=== PATIENT | male | born 1950 | race Two or more races ===

== ENCOUNTER 2017-02-13 06:44 | Emergency (ER) | payer OTHER ==
[~2017-02-13] VITALS: Ht 167.6 cm; Wt 113.4 kg
[~2017-02-13 06:44] MED LIST: ASPI81CH43; CLOP75TA28
[2017-02-13] MEDS ORDERED: cloNIDine HCL 0.1 MG TAB PO ONE (08:15)
[2017-02-13 09:25] LABS: Basophils # (auto) 0.1 uL; Basophils % (auto) 0.8 % (0.0-2.0); CONDITION Y; Eosinophils # (auto) 0.1 uL; Eosinophils % (auto) 0.9 % (0.0-7.0); Hemoglobin 14.9 g/dL (13.5-17.5); Lymphocytes # (auto) 2.4 uL; Lymphocytes % (auto) 33.9 % (10.0-50.0); Mean Corpuscular Hemoglobin 29.9 pg (28.0-32.0); Mean Corpuscular Hgb Conc. 33.9 g/dL (32.0-36.0); Mean Corpuscular Volume 88.3 fL (80.0-100.0); Mean Platelet Volume 9.1 fL (7.4-10.4); Monocytes # (auto) 0.6 uL; Monocytes % (auto) 8.7 % (0.0-12.0); Neutrophils % (auto) 55.7 % (37.0-80.0); Platelet Count (auto) 237 10^3/uL (140-450); Red Cell Distribution Width 13.8 % (11.6-16.0); White Blood Cell 7.2 10^3/uL (4.4-10.8)
[2017-02-13 10:01] LABS: Albumin 3.7 g/dL (3.4-5.0); Alkaline Phosphatase 82 U/L (45-117); Anion Gap 6 (5-15); Aspartate Aminotransferase 28 U/L (15-37); Bilirubin, Total 1.4 mg/dL (0.2-1.0); Blood Urea Nitrogen 8 mg/dL (7-18); Calcium 8.5 mg/dL (8.5-10.1); Carbon Dioxide 27 mmol/L (21-32); Chloride 103 mmol/L (98-107); GFR African American 110 mL/min; GFR Non-African American 91 mL/min; Glucose 103 mg/dL (74-106); Magnesium 2.7 mg/dL (1.6-2.6); Sodium 136 mmol/L (136-145); Total Protein 7.1 g/dL (6.4-8.2)
[2017-02-13 11:28] VITALS: BP 130/75
== END 2017-02-13 11:33 | disposition home or self-care (01) ==
LOC: ER 06:44
DX: K80.20 Calculus of gallbladder without cholecystitis without obstruction (principal); I25.10 Atherosclerotic heart disease of native coronary artery without angina pectoris; I10 Essential (primary) hypertension; I25.2 Old myocardial infarction; Z98.61 Coronary angioplasty status; Z87.891 Personal history of nicotine dependence
CPT/HCPCS: 36415; 74176; 80053; 83735; 84484; 85025; 93005

== ENCOUNTER 2019-11-30 10:00 | Inpatient (IN) | payer OTHER ==
[~2019-11-30] VITALS: Ht 167.6 cm; Wt 106.0 kg
[2019-11-30] VITALS (41 sets, daily range): BP systolic 76–142; BP diastolic 37–86
[~2019-11-30 10:00] MED LIST changes: -CLOP75TA28; +CLOP75TA28 PO
[2019-11-30] MEDS ORDERED: DOPamine 1600MCG/ML D5W 250 ML IV ONE (10:06)
[2019-11-30] MEDS ORDERED: SODIUM CHLORIDE 0.9% 1,000 ML IV ONE ×4 (10:09→18:00)
[2019-11-30] MEDS ORDERED: ONDANSETRON HCL 4 MG/2 ML VIAL IV ONE (10:15)
[2019-11-30] MEDS ORDERED: ASCORBIC ACID 500 MG TAB PO ONE (10:15)
[2019-11-30] MEDS ORDERED: ZINC SULFATE 220mg CAP or TAB PO ONE (10:15)
[2019-11-30] MEDS: DOPamine 1600MCG/ML D5W 250 ML IV SCH ×2 (10:21→16:30)
[2019-11-30] MEDS ORDERED: PROMETHAZINE HCL 25 MG/ML 1ML ONE (10:28)
[2019-11-30 10:33] LABS: Basophils # (auto) 0 10 ^3/uL (0-0.2); Basophils % (auto) 0.5 % (0.0-2.0); Eosinophils # (auto) 0.1 10 ^3/uL (0-0.8); Hematocrit 42.7 % (41.0-53.0); Hemoglobin 14.4 g/dL (13.5-17.5); Lymphocytes # (auto) 5.2 10 ^3/uL (0.4-5.4); Lymphocytes % (auto) 49.7 % (10.0-50.0); Mean Corpuscular Hemoglobin 29.4 pg (28.0-32.0); Mean Corpuscular Hgb Conc. 33.7 g/dL (32.0-36.0); Mean Corpuscular Volume 87.4 fL (80.0-100.0); Monocytes # (auto) 0.7 10 ^3/uL (0-1.3); Monocytes % (auto) 6.7 % (0.0-12.0); Neutrophils # (auto) 4.4 10 ^3/uL (1.6-8.6); Neutrophils % (auto) 42.1 % (37.0-80.0); Nucleated Red Blood Cells % 0.1 %; Platelet Count (auto) 234 10^3/uL (140-450); Red Blood Cells 4.89 10^6/uL (4.5-5.90); Red Cell Distribution Width 13.8 % (11.8-14.3); White Blood Cell 10.5 10^3/uL (4.4-10.8)
[2019-11-30] MEDS ORDERED: HEPARIN SODIUM (PORCINE) 5000 UNITS/ML 1ML VIAL ONE (10:33)
[2019-11-30] MEDS ORDERED: PROMETHAZINE HCL 25 MG/ML 1ML IV ONE (10:45)
[2019-11-30] MEDS ORDERED: HEPARIN SODIUM (PORCINE) 5000 UNITS/ML 1ML VIAL IV ONE (10:45)
[2019-11-30 10:50] LABS: INR 1.07 (0.9-1.15); Partial Thromboplastin Time 24.5 sec (23.64-32.05)
[2019-11-30 10:51] LABS: Albumin 3.3 g/dL (3.4-5.0); Anion Gap 12 (5-15); Blood Urea Nitrogen 14 mg/dL (7-18); Calcium 7.8 mg/dL (8.5-10.1); Carbon Dioxide 20 mmol/L (21-32); Chloride 110 mmol/L (98-107); Glucose 191 mg/dL (74-106); Potassium 3.6 mmol/L (3.5-5.1); Sodium 142 mmol/L (136-145)
[2019-11-30] MEDS ORDERED: LIDOCAINE 2%HCL (LOCAL ANESTH.) INJ 20ML MDV ONE (10:53)
[2019-11-30] MEDS ORDERED: IOHEXOL 350 MG/ML 100ML IJ ONE (10:53)
[2019-11-30 10:56] LABS: Alanine Aminotransferase 23 U/L (16-61); Alkaline Phosphatase 65 U/L (45-117); Aspartate Aminotransferase 19 U/L (15-37); BUN/Creatinine Ratio 11.4; Bilirubin, Total 1.2 mg/dL (0.2-1.0); GFR African American 75 mL/min; GFR Non-African American 62 mL/min; Total Protein 6.6 g/dL (6.4-8.2)
[2019-11-30] MEDS ORDERED: SODIUM CHL 0.9% 50 ML ONE (10:59)
[2019-11-30] MEDS ORDERED: fentaNYL CITRATE 100 MCG/2 ML VL ONE (10:59)
[2019-11-30] MEDS ORDERED: ANGIOMAX 250 MG VIAL IV ONE (10:59)
[2019-11-30] MEDS ORDERED: MIDAZOLAM HCL 1MG/1ML-2 ML VIAL ONE (10:59)
[2019-11-30] MEDS ORDERED: cefTRIAXone 1GM/50ML D5W 50 ML IV ONE (11:15)
[2019-11-30] MEDS ORDERED: AZITHROMYCIN 500MG/ 250ML 250 ML IV ONE (11:15)
[2019-11-30] MEDS ORDERED: ONDANSETRON HCL 4 MG/2 ML VIAL ONE (11:16)
[2019-11-30] MEDS ORDERED: TICAGRELOR 90 MG TAB ONE (11:39)
[2019-11-30] MEDS ORDERED: diphenhdrAMINE HCL 50 MG/1 ML VL ONE (11:45)
--- NOTE | 2019-11-30 11:55 | NUR ---
Pt to ICU phone report given to ICU primary RN by KALEB RN pt transferred directly to ICU on monitor, O2, and Dopamine drip. FC remains in place. Pt endorsed to primary RN at bedside. Rt groin access benign, no bleeding or hematoma.
--- NOTE | 2019-11-30 12:10 | NUR ---
Patient admitted to ICU S/P Cardiac Cath EVERARDO LEONG transferred to ICU following right groin Cardiac catheterization, on library monitor and portable oxygen. Patient received in ICU bed, connected to ICU monitoring and oxygen. Right groin clean, dry and intact, no swelling, redness or hematoma noted upon palpation area soft to touch. Patient educated on need to keep leg straight and flat. Patient verbalized understanding appears fatigued. Pedal pulses on affected leg assessed for positive tissue perfusion. Patient instructed on need to notify staff immediately if any pain, burning or wetness to site, and any lower back pain. Patient assessment performed and documented. Patient able to turn self, grant catheter draining clear/yellow urine to gravity. Fall precautions in place, will continue to monitor patient during shift.
[2019-11-30] MEDS ORDERED: LORazepam 0.5 MG TAB PO PRN (12:30)
[2019-11-30] MEDS ORDERED: HYDROcodone-ACET 5/325MG TAB PO PRN (12:30)
--- NOTE | 2019-11-30 13:30 | NUR ---
CALL RECEIVED FROM FAMILY PATIENT'S SPOUSE TYESHA UPDATED ON PATIENT'S STATUS AND OBTAINED COMPLETED ADMISSION ASSESSMENT. PASSWORD OBTAINED: [id number]. TYESHA PROVIDED MEDICAL HISTORY WELL LIST OF HOME MEDICATIONS THAT TYESHA STATES "PATIENT NEVER TOOK BECAUSE HE IS STUBBORN". TYESHA ALSO REPORTED THAT PATIENT DID HAVE AN EPISODE OF CHEST PAIN LAST YEAR AND HAD PROCEDURE DONE AT [facility] BUT NOT SURE WHAT KIND. ADMISSION ASSESSMENT COMPLETED.
--- NOTE | 2019-11-30 15:40 | NUR ---
WOUND CARE NOTE: Wound care in to see patient per wound care request regarding "small abrasion back of head secondary to fall at home prior admission". Patient is 69 years old male with admitting diagnosis of STEMI. Patient with history of CAD, htn, PR. Patient is resting in ICU bed in Rm. 106. Patient is awake, alert, and oriented. Patient is in no stated pain at this time. Patient admitted to ICU few hours ago from component lab tech s/p L [facility] cath. He's able to assist in turning to his side while maintaining his legs straight. No wound noted other than small posterior scalp abrasion and R groin incision with C/D/I dressing. No pressure injury noted. Patient tolerated well, repositioned for comfort. RECOMMENDATION: Nursing to continue with BID/PRN cleaning and application of Barrier cream to sacral, buttocks as preventative per MD order, Dietary consult, frequent turning and repositioning schedule as condition permits, redistribute pressure points with pillows, continue monitoring by wound care while patient is hospitalized. Addendum: 11/30/19 at 1634 by Judith Machado RN Amended: Links added.
--- NOTE | 2019-11-30 15:48 | NUR ---
PAGED CARDIOLOGY/NAUSEA TO NOTIFY OF PATIENT FEELING NAUSEOUS WITH NO VOMIT, AWAITING RESPONSE.
--- NOTE | 2019-11-30 15:59 | NUR ---
RETURN CALL FROM CARDIOLOGY DR MORENO UPDATED ON PATIENT'S REPORT OF NAUSEA, ORDERS RECEIVED AND DIET ORDERED.
[2019-11-30] MEDS ORDERED: ONDANSETRON HCL 4 MG/2 ML VIAL IV PRN (16:00)
[2019-11-30] MEDS ORDERED: CHOL20007 PO (17:43)
[2019-11-30] MEDS ORDERED: LISI10TA6 PO (17:43)
[2019-11-30] MEDS ORDERED: NITR0.4S29 SL (17:43)
[2019-11-30] MEDS ORDERED: TADA5TAB11 PO (17:43)
[2019-11-30] MEDS ORDERED: LACTULOSE 20Gm/30ML SOLN PO PRN (18:00)
[2019-11-30] MEDS ORDERED: ALBUTEROL SULF 2.5 MG/0.5ML(0.5%) NEB SOLN NEB SCH (18:00)
[2019-11-30] MEDS ORDERED: DEXTROSE (50%) 50ML SYRG IV PRN (18:00)
[2019-11-30] MEDS ORDERED: ACETAMINOPHEN 500 MG TAB PO PRN (18:00)
[2019-11-30] MEDS ORDERED: TEMAZEPAM 15 MG CAP PO PRN (18:00)
[2019-11-30] MEDS ORDERED: ALBUTEROL SULF 2.5 MG/0.5ML(0.5%) NEB SOLN NEB PRN (18:00)
[2019-11-30] MEDS ORDERED: levoFLOXacin 750MG 150 ML IV ONE (18:00)
[2019-11-30] MEDS ORDERED: IPRATROPIUM BROM 0.5 MG/2.5ML INH SOL NEB SCH (18:00)
--- NOTE | 2019-11-30 18:18 | NUR ---
HOSPITALIST AT BEDSIDE/ISOLATION DR NEIL UPDATED ON PATIENT'S STATUS AND NEED FOR 10 LITERS OXYGEN. ORDERS FOR ISOLATION TO RULE OUT COVID 19. CHARGE NURSE AND PATIENT AWARE.
--- NOTE | 2019-11-30 18:25 | NUR ---
CONTACT LAB FOR INHOUSE COVID 19 TEST.
--- NOTE | 2019-11-30 19:28 | NUR ---
IN HOUSE COVID 19 SENT TO LAB/END OF SHIFT PATIENT LAYING ON RIGHT SIDE, ALERT AND ORIENTED X4, RESPIRATIONS IN THE HIGH 20'S, NO DISTRESS NOTED, RESPIRATIONS EVEN AND UNLABORED, PATIENT CURRENTLY ON 15 LITERS NON REBREATHER AND SATURATION 91%. FALL AND SAFETY PRECAUTIONS IN PLACE, PATIENT PLACED ON BED PEREZ, ENDORSED CONTINUED CARE AND REMOVAL OF BED PEREZ TO TRIMMER SORTER RN. IN HOUSE COVID 19 SENT TO LAB.
--- NOTE | 2019-11-30 20:00 | NUR ---
Opening Shift Note: A&Ox4, resting in bed. Currently on 15 LO2 via nonrebreather mask; patient does not wear oxygen at home; pain level 0/10, and at baseline is independent without the use of assistive devices; current SBA assist pivot to the BSC. Bed locked in lowest position, side rails up x3, call light within reach, and bed alarm on for patient safety. Patient s/p code STEMI; Dr. Schrader did PTCA/stenting of circumflex artery on 11/30/19: right groin access: 4x4 and tegaderm CDI/all pulses are palpable. COVID-19 rule out: isolation precautions in place. Douglass inserted on 11/30/19 for strict I/O. Skin: posterior head abrasion LIFT TRUCK OPERATOR and right groin incision previously mentioned. IVs: right and left hand 20 g IVs both inserted on 11/30/19. Current drips: dopamine @ 7; NS @ 125 ml/hr. POC discussed and questions answered. Will continue to round prn.
[2019-11-30] MEDS: SODIUM CHLORIDE 0.9% 1,000 ML IV SCH (21:10)
[2019-11-30] MEDS: CLINDAMYCIN 600MG IV 50 ML IV SCH (21:10)
[2019-11-30] MEDS: CARVEDILOL 3.125 MG TAB PO SCH (21:11)
[2019-11-30] MEDS: TICAGRELOR 90 MG TAB PO SCH (21:11)
[2019-11-30] MEDS: ATORVASTATIN 20 MG TAB PO SCH (21:12)
[2019-11-30] MEDS: ACCU-CHEK COMFORT CURVE STRIP VI SCH (22:00)
[2019-11-30] MEDS: InsuLIN REG 1unit/0.01ml Soln (100units/ml) SC SCH (22:00)
--- NOTE | 2019-11-30 22:00 | NUR ---
Rapid Flu sent to lab via bullet system.
--- NOTE | 2019-11-30 23:15 | NUR ---
Critical Troponin: Called received from lab for critical high troponin of 137. Patient is s/p PTCA/stenting today. No current chest pain or discomfort.
[2019-12-01] VITALS (73 sets, daily range): BP systolic 64–132; BP diastolic 29–77
[2019-12-01] MEDS: DOPamine 1600MCG/ML D5W 250 ML IV SCH ×2 (01:23→11:15)
[2019-12-01] MEDS: SODIUM CHLORIDE 0.9% 1,000 ML IV SCH ×2 (04:35→09:27)
[2019-12-01 04:36] LABS: Basophils # (auto) 0 10 ^3/uL (0-0.2); Basophils % (auto) 0.1 % (0.0-2.0); Eosinophils # (auto) 0 10 ^3/uL (0-0.8); Hematocrit 44.9 % (41.0-53.0); Hemoglobin 15.3 g/dL (13.5-17.5); Lymphocytes # (auto) 1.3 10 ^3/uL (0.4-5.4); Lymphocytes % (auto) 8.8 % (10.0-50.0); Mean Corpuscular Hemoglobin 29.7 pg (28.0-32.0); Mean Corpuscular Hgb Conc. 34.1 g/dL (32.0-36.0); Monocytes # (auto) 0.9 10 ^3/uL (0-1.3); Monocytes % (auto) 6.1 % (0.0-12.0); Nucleated Red Blood Cells % 0.1 %; Platelet Count (auto) 218 10^3/uL (140-450); Red Blood Cells 5.16 10^6/uL (4.5-5.90); White Blood Cell 15.3 10^3/uL (4.4-10.8)
[2019-12-01 04:51] LABS: Albumin 3.4 g/dL (3.4-5.0); Calcium 7.9 mg/dL (8.5-10.1); Potassium 3.8 mmol/L (3.5-5.1)
[2019-12-01 04:59] LABS: BUN/Creatinine Ratio 11.1; Bilirubin, Total 1.9 mg/dL (0.2-1.0); Total Protein 7.3 g/dL (6.4-8.2)
[2019-12-01] MEDS: InsuLIN REG 1unit/0.01ml Soln (100units/ml) SC SCH ×4 (05:42→22:00)
[2019-12-01] MEDS: CLINDAMYCIN 600MG IV 50 ML IV SCH (06:04)
[2019-12-01] MEDS: ACCU-CHEK COMFORT CURVE STRIP VI SCH ×4 (06:05→22:00)
--- NOTE | 2019-12-01 06:45 | NUR ---
Hematuria: Page sent to senior solutions architect hospitalist in regards to new onset hematuria (high red/orange in color). Patient does complain of pain at the insertion site; no bladder distention noted. Total of 550 out of catheter for 12 hour shift. New order received to send a UA to test. Orders pending on UA results.
[2019-12-01 06:56] LABS: Urine WBC None Seen /hpf (0 - 3)
[2019-12-01 07:05] LABS: Urine Amorphous Crystal MANY /hpf (None Seen); Urine Bacteria NONE SEEN /hpf (None Seen); Urine Blood 3+ /uL (Negative); Urine Mucus FEW (None Seen); Urine Specific Gravity 1.029 (1.001-1.035)
--- NOTE | 2019-12-01 09:10 | NUR ---
CARDIOLOGY AT BEDSIDE COLLETTE MARTINO, OUTSIDE PLANT TECHNICIAN AT BEDSIDE, COLLETTE UPDATED ON PATIENT STATUS, NOTED BLEEDING IN ASENCIO, DRIPS, OXYGEN CONSUMPTION AND MEDICATIONS CONSIDERING TO BE HELD DUE TO URINARY BLEEDING (ASA, BRILINTA). PER COLLETTE, "GO AHEAD AND GIVE BRILINTA AND ASA, I WILL PUT UROLOGY CONSULT". ORDERS WILL BE CARRIED OUT. PENDING COVID 19 RESULTS.
[2019-12-01] MEDS: ASPirin 81 mg TAB PO SCH (09:28)
[2019-12-01] MEDS: TICAGRELOR 90 MG TAB PO SCH ×2 (09:29→22:00)
[2019-12-01] MEDS: LISINOPRIL 5 MG TAB PO SCH (09:30)
[2019-12-01] MEDS: CARVEDILOL 3.125 MG TAB PO SCH ×2 (09:31→22:00)
[2019-12-01] MEDS ORDERED: levoFLOXacin 500MG 100 ML IV SCH (10:00)
[2019-12-01] MEDS ORDERED: ASPirin-EC 81 mg tab PO SCH (10:00)
--- NOTE | 2019-12-01 10:25 | NUR ---
Family updated on pt status Family of EVERARDO LEONG updated on patient's status and condition after password verification. All questions and concerns addressed. Amy, patient's spouse verbalized understanding.
[2019-12-01] MEDS ORDERED: SODIUM CHLORIDE 0.9% 1,000 ML IV SCH (12:30)
[2019-12-01] MEDS ORDERED: PIPERACILLIN-TAZOB 3.375GM 100 ML IV ONE (12:45)
[2019-12-01] MEDS ORDERED: PANTOPRAZOLE 40 MG TAB PO ONE (12:45)
[2019-12-01] MEDS ORDERED: POTASSIUM CHL 10 Meq TABLET PO ONE (12:45)
[2019-12-01] MEDS ORDERED: FUROSEMIDE 20 MG/2 ML VIAL IV ONE (12:45)
--- NOTE | 2019-12-01 13:23 | NUR ---
CALL FROM DR TEJADA UPDATE ON PATIENT'S STATUS AND REASON FOR CONSULT. DR TEJADA VERBALIZED UNDERSTANDING AND STATED HE WOULD SEE PATIENT LATER TODAY. NO ORDERS RECEIVED AT THIS TIME.
--- NOTE | 2019-12-01 13:26 | NUR ---
PAGED HOSPITALIST DR ADAMS, ORDERS NOTED IN EMAR, DID NOT SEE MD THIS NURSE WAS OUT TO LUNCH. PAGED HOSPITALIST TO NOTIFY OF OXYGEN DEMAND REQUIRED BY PATIENT AND NO PULMONOLOGY CONSULT. AWAITING RESPONSE.
--- NOTE | 2019-12-01 13:27 | NUR ---
Nutrition Assessment Notes Please refer to link for full assessment notes. Est energy needs: [id number] kcals (12-15 kcal/kgBW) Est protein needs: 77-84 gms/day (1.0-1.1 gm/kgBW) Will continue to monitor and reassess prn. Addendum: 12/01/19 at [address] Amended: Links added.
[2019-12-01] MEDS: IPRATROPIUM BROM 0.5 MG/2.5ML INH SOL NEB SCH ×3 (14:00→22:43)
[2019-12-01] MEDS: ALBUTEROL SULF 2.5 MG/0.5ML(0.5%) NEB SOLN NEB SCH ×3 (14:00→22:43)
--- NOTE | 2019-12-01 14:04 | NUR ---
REAL ESTATE LEASING AGENT AT BEDSIDE
--- NOTE | 2019-12-01 15:52 | NUR ---
PHYSICAL THERAPY/UROLOGY AT BEDSIDE PATIENT AMBULATED TWO TIMES AROUND ICU NURSE STATION WITH USE OF ROLLATOR AND OXYGEN AT 10 LITERS OXYMIZER. PATIENT TOLERATED WELL, NO SOB NOTED, PATIENT SITTING IN BEDSIDE CHAIR, VSS AND DOCUMENTED. CALL LIGHT AND ALL PERSONAL BELONGINGS WITHIN REACH. FALL AND SAFETY PRECAUTIONS IN PLACE.
[2019-12-01] MEDS: PIPERACILLIN-TAZOB 3.375GM 100 ML IV SCH (17:36)
--- NOTE | 2019-12-01 18:05 | NUR ---
BM/COMFORT PATIENT AMBULATED TO TOILET WITH STANDBY ASSIST. PATIENT REPORTED TO NURSE THAT HE DID HAVE BOWEL MOVEMENT. PATIENT SITTING BACK IN BEDSIDE CHAIR WATCHING TELEVISION, VSS AND DOCUMENTED. ALL PERSONAL BELONGINGS AND CALL LIGHT WITHIN REACH.
--- NOTE | 2019-12-01 18:58 | NUR ---
END OF SHIFT NOTE PATIENT SITTING IN BEDSIDE CHAIR, ALERT AND ORIENTED X4, NO DISTRESS NOTED, RESPIRATIONS EVEN AND UNLABORED. PATIENT DENIES PAIN OR DISCOMFORT AT THIS TIME, PATIENT DID HAVE ONE BOWEL MOVEMENT. FALL AND SAFETY PRECAUTIONS IN PLACE, ENDORSED CONTINUED CARE TO PRINTING PLATE CLERK RN.
--- NOTE | 2019-12-01 21:00 | NUR ---
PT IS ADVISED TO GO BACK TO BED SINCE HE LOOKS TIRED AND BP DROPS TO 80'S AND DOPAMINE HAS TO BE INCREASED TO 10 MCG/K/MIN. PT IS GIVEN PAR REQUEST ONE NORCO TB FOR C/O F/C CATHETER DISCOMFORT AND THORACIC PAIN WHEN HE COUGHS. BP IMPROVES, PT SETTLES FOR SLEEP.
[2019-12-01] MEDS: ATORVASTATIN 20 MG TAB PO SCH (22:00)
[2019-12-02] VITALS (97 sets, daily range): BP systolic 77–144; BP diastolic 40–89
--- NOTE | 2019-12-02 01:45 | NUR ---
RT NOTE: RT CALLED TO BEDSIDE FOR O2 DESATURATION ON OXYMIZER. PT PLACED ON 15L NON REBREATHER BY RN. PT STATES HE OVEREXERTED HIMSELF, BUT NOT REALLY SOB. MED NEB TX GIVEN @ THIS TIME. PT MAINTAINED SPO2 88-90% ON NON REBREATHER. WILL TITRATE FIO2 TOLERATED. ADVISED PT TO RELAX AND NOT OVEREXERT HIMSELF. PT STATED UNDERSTANDING. WILL CONT TO MONITOR @ THIS TIME.
[2019-12-02] MEDS: ALBUTEROL SULF 2.5 MG/0.5ML(0.5%) NEB SOLN NEB SCH ×6 (01:53→22:32)
[2019-12-02] MEDS: IPRATROPIUM BROM 0.5 MG/2.5ML INH SOL NEB SCH ×6 (01:53→22:32)
--- NOTE | 2019-12-02 01:55 | NUR ---
AFTER MIDNIGHT PT REQUESTS TO GET OOB AND SIT IN CHAIR. INSTRUCTED THAT HE WOULD BE SAFER IF HE REMAINS ON BEDREST BEING ON DOPAMINE GTT. PT REFUSED TO BE COMPLIANT AND HAD TO BE ASSISTED TO SIT IN CHAIR. AFTER APPROX ONE HR STARTS TO DESATURATE AND BECOMES HYPOTENSIVE. ADVISED TO RETURN IMMEDIATELY TO BED, EXPLAINED THE RISK OF NONCOOPERATION, PLACED ON 100% NRM PER RT ADVISE. BP RETURNS TO ABOVE 100 AND SAT TO 90%. WILL CONTINUE TO MONITOR CLOSELY,
[2019-12-02] MEDS: DOPamine 1600MCG/ML D5W 250 ML IV SCH ×2 (02:08→12:29)
--- NOTE | 2019-12-02 03:07 | NUR ---
REFUSING TO WEAR NRB - PLACED BACK ON 8 L OXYMIZER: ADVISED THAT IF HE CONTINUES TO DESATURATE, HE WILL HAVE TO GO BACK ON THE NON-REBREATHER. ALSO EXPLAINED CONSEQUENCES OF RESPIRATORY FAILURE. PATIENT STILL REFUSING TO WEAR NRB.
--- NOTE | 2019-12-02 03:37 | NUR ---
DESATURATING DOWN TO 87% - PLACED ON 15L NRB - ATIVAN PRN GIVEN
[2019-12-02 04:05] LABS: Basophils # (auto) 0 10 ^3/uL (0-0.2); Basophils % (auto) 0.1 % (0.0-2.0); Eosinophils # (auto) 0 10 ^3/uL (0-0.8); Hematocrit 41.5 % (41.0-53.0); Hemoglobin 13.7 g/dL (13.5-17.5); Lymphocytes # (auto) 0.8 10 ^3/uL (0.4-5.4); Mean Corpuscular Hgb Conc. 33.1 g/dL (32.0-36.0); Mean Corpuscular Volume 87.5 fL (80.0-100.0); Monocytes # (auto) 1.2 10 ^3/uL (0-1.3); Monocytes % (auto) 7.8 % (0.0-12.0); Neutrophils # (auto) 13.6 10 ^3/uL (1.6-8.6); Neutrophils % (auto) 87.1 % (37.0-80.0); Platelet Count (auto) 191 10^3/uL (140-450); Red Blood Cells 4.74 10^6/uL (4.5-5.90); Red Cell Distribution Width 13.8 % (11.8-14.3); White Blood Cell 15.7 10^3/uL (4.4-10.8)
[2019-12-02 04:27] LABS: Albumin 2.9 g/dL (3.4-5.0); Calcium 7.8 mg/dL (8.5-10.1); Magnesium 2.2 mg/dL (1.6-2.6); Potassium 3.2 mmol/L (3.5-5.1)
[2019-12-02 04:32] LABS: BUN/Creatinine Ratio 14.9; Total Protein 6.8 g/dL (6.4-8.2)
--- NOTE | 2019-12-02 04:46 | NUR ---
DESATURATING DOWN TO LOW 80s - PATIENT STATES HE CAN'T TOLERATE THE NRB BECAUSE WHEN HE COUGHS IT MAKES IT HARDER TO BREATHE, RR IN THE 40s: SOLUTION ENGINEER EXPLAINED PURPOSE OF NRB AND OXYGEN LEVELS. SAT PATIENT UP IN SEMI FOWLERS. PLACED NRB BACK ON THE PATIENT. CALLED AND NOTIFIED DAVID MCKENZIE, AND ASSIGNED RN
--- NOTE | 2019-12-02 05:02 | NUR ---
RT NOTE: RT PAGED TO ROOM FOR OXYGEN DESATURATION. PT'S SPO2 86-88% ON NRB. INCREASED WOB NOTED. PT STATED HE WAS FEELING VERY ANXIOUS AND COULD NOT KEEP MASK ON. PT PLACED ON HFNC 50L/100%. SPO2 INCREASED TO 97% POST CHANGE. WOB ALSO DECREASED POST CHANGE. WILL ENDORSE CARE TO DAYSHIFT RT.
--- NOTE | 2019-12-02 05:10 | NUR ---
PAGED CLINICAL PHARMACY MANAGER HOSPITALIST
[2019-12-02] MEDS: PIPERACILLIN-TAZOB 3.375GM 100 ML IV SCH ×4 (05:15→18:37)
[2019-12-02] MEDS: InsuLIN REG 1unit/0.01ml Soln (100units/ml) SC SCH ×4 (05:25→22:00)
[2019-12-02] MEDS: ACCU-CHEK COMFORT CURVE STRIP VI SCH ×4 (05:31→22:09)
--- NOTE | 2019-12-02 06:15 | NUR ---
[facility]
--- NOTE | 2019-12-02 06:39 | NUR ---
NOTIFIED KAMRON REID OF RESPIRATORY EVENTS AND RT PLACED PATIENT ON HIGH FLOW OXYGEN: FRANKLIN ACKNOWLEDGED. NO NEW ORDERS.
--- NOTE | 2019-12-02 07:30 | NUR ---
REPORT REPORT RECEIVED FROM RENU CLEARY RN. BEDSIDE CHECK DONE. RT AMBERLY AT THE BEDSIDE. Addendum: 12/02/19 at 1224 by Chani Schuler RN RT HELGA BURCH AT THE BEDSIDE.
--- NOTE | 2019-12-02 07:37 | NUR ---
ASSESSMENT PT RESTING IN BED WITH EYES CLOSED, BUT OPENS EYES AND ANSWERS QUESTIONS APPROPRIATELY TO NAME. PT WITH LUNGS CLEAR AND DIMINISHED THROUGHOUT. ON HIGH FLOW O2 AT 100% WITH 6O L FLOW. VS:98.6(0) 89-35-89% 100/57. TELE SR . PALPABLE PULSES TO ALL EXTREMITIES WITH NO EDEMA NOTED. ABD SOFT WITH ACTIVE BOWEL SOUNDS NOTED. LAST BM WAS YESTERDAY. ASENCIO CATHETER DRAINING YELLOW URINE WITH SEDIMENT. WILL NOT TURN PT AT THIS TIME TO ASSESS SKIN DUE TO SOB. SKIN IS JAUNDICED AND TOTAL BILIRUBIN IS 3.0 THIS AM. LAXMI REID NP. TO REPORT RESP STATUS.
[2019-12-02] MEDS ORDERED: FUROSEMIDE 20 MG/2 ML VIAL ONE ×2 (07:54→08:42)
[2019-12-02] MEDS ORDERED: POTASSIUM CHL 20 Meq TABLET PO ONE (08:00)
[2019-12-02] MEDS ORDERED: FUROSEMIDE 20 MG/2 ML VIAL IV ONE (08:00)
--- NOTE | 2019-12-02 08:00 | NUR ---
ADMINISTERED ORDERED DOSE OF LASIX 20MG IV, PER NP. FRANKLIN
--- NOTE | 2019-12-02 08:21 | NUR ---
PLACED A NEW SALINE LOCK, #20 , TO THE LAC,FIRST ATTEMPT.TOLERATED WELL BY THE PT.
--- NOTE | 2019-12-02 08:35 | NUR ---
PT SEEN AND EXAMINED BY RUDDY SHEPPARD NP. PT GIVEN LASIX 40MG IV AND KCL 60mEQ PO. WILL CONTINUE TO MONITOR FOR UOP AND IMPROVEMENT IN RESPIRATORY STATUS.
[2019-12-02] MEDS ORDERED: FUROSEMIDE 40 MG/4 ML VIAL IV ONE (08:45)
--- NOTE | 2019-12-02 09:00 | NUR ---
PHYSICAL THERAPY PHYSICAL THERAPIST HERE TO WORK WITH PT, BUT ASKED THAT HE HOLD TREATMENT FOR NOW DUE TO PT'S INCREASED O2 DEMAND.
--- NOTE | 2019-12-02 09:00 | NUR ---
KURT MARTINO, CARDIOLOGY TRAVEL MED SURG RN, HERE TO SEE PT. I UPDATED HER ON THE PT'S CURRENT CONDITION INCLUDING INCREASING O2 DEMAND THROUGH THE NIGHT AND PT HAS RECEIVED LASIX 20MG IV AT 0800 AND JUST GAVE 40MG LASIX AND POTASSIUM 60mEQ PO. DISCUSSED LIKELY NEED FOR PT TO BE INTUBATED.
--- NOTE | 2019-12-02 09:00 | NUR ---
DIOR instructed this BLOCK OUT MACHINE OPERATOR to hold PT tx today. Addendum: 12/02/19 at 1128 by Layton Avila BLOCK OUT MACHINE OPERATOR Amended: Links added.
--- NOTE | 2019-12-02 09:22 | NUR ---
PAGED DR ADAMS, URGENT PAGE ,REGARDING PT'S RESPIRATORY CONDITION. VS: 89-39-83% AND 115/70. TRIED TO GET THE PT TO TAKE SLOW DEEP BREATHS AND RR DOWN TO 29 AND O2 SATS OF 85-86%.
--- NOTE | 2019-12-02 09:37 | NUR ---
STAT PAGED DR ADAMS.
--- NOTE | 2019-12-02 09:42 | NUR ---
RECEIVED A CALL BACK FROM DR ADAMS. SHE IS NOT YET IN THE HOSPITAL. I UPDATED HER ON THE PT'S CURRENT CONDITION INCLUDING INCREASING O2 REQUIREMENTS AND INTERVENTIONS OF LASIX AND POTASSIUM THIS AM. DR TOSCANO IS COMING TO EVALUATE THE PT. 85-30-86% 107/65.
[2019-12-02] MEDS ORDERED: AZITHROMYCIN 500MG/ 250ML 250 ML IV SCH (10:00)
[2019-12-02] MEDS: LISINOPRIL 5 MG TAB PO SCH (10:00)
[2019-12-02] MEDS ORDERED: PANTOPRAZOLE 40 MG TAB PO SCH (10:00)
[2019-12-02] MEDS: ASPirin 81 mg TAB PO SCH (10:47)
[2019-12-02] MEDS: TICAGRELOR 90 MG TAB PO SCH ×2 (10:47→22:09)
[2019-12-02] MEDS: CARVEDILOL 3.125 MG TAB PO SCH ×2 (10:48→17:40)
[2019-12-02] MEDS ORDERED: ETOMIDATE (2MG/ML) 20ML VIAL IV ONE (11:01)
[2019-12-02] MEDS ORDERED: PROPOFOL 100 ML IV ONE (11:15)
[2019-12-02] MEDS ORDERED: SUCCINYLCHOLINE CHLORIDE 20 MG/ML 10ML VIAL IV ONE (11:17)
[2019-12-02] MEDS: NOREPINEPHRINE 8 MG/250ML KIT 250 ML IV SCH (11:19)
[2019-12-02] MEDS ORDERED: PROPOFOL 100 ML IV SCH (11:19)
[2019-12-02] MEDS ORDERED: MIDAZOLAM DRIP 50 mg/50mL 50 ML IV SCH (11:19)
[2019-12-02] MEDS: MIDAZOLAM DRIP 50 mg/50mL 50 ML IV SCH (11:20)
[2019-12-02] MEDS: PROPOFOL 100 ML IV SCH (11:20)
--- NOTE | 2019-12-02 11:20 | NUR ---
PT INTUBATED BY DR TOSCANO , AFTER PT RECEIVED 2 DOSES OF ETOMIDATE 15 MG IVP. AC 14, TV 500, PEEP OF 5 AND 100% FIO2..
--- NOTE | 2019-12-02 11:30 | NUR ---
PORTABLE CXR TAKEN TO CONFIRM PLACEMENT OF ETT. VS: 87-25-90% AND 118/73.
[2019-12-02] MEDS: fentaNYL Drip 2500mCg/250mlNS 250 ML IV SCH (11:50)
[2019-12-02] MEDS: SODIUM CHLORIDE 0.9% 1,000 ML IV SCH (12:46)
[2019-12-02] MEDS ORDERED: PANTOPRAZOLE 40 MG/10 ML VIAL INJ IV ONE (15:00)
--- NOTE | 2019-12-02 15:02 | NUR ---
SPOKE WITH DR ADAMS , BY PHONE, AND UPDATED HER ON THE PT'S CURRENT CONDITION INCLUDING VITAL SIGNS AND DOSAGES ON FENTANYL, DOPAMINE AND DIPRIVAN. ASKED IF WE CAN CHANGE THE PROTONIX TO IV THE PILL CAN'T BE CRUSHED AND SHE ORDERED IT.
--- NOTE | 2019-12-02 16:41 | NUR ---
FAMILY CALLED AND AFTER VERIFYING THE PASSWORD, I SPOKE WITH PT'S , TYESHA. I BROUGHT HER UP TO DATE ON THE PT'S CONDITION AND THAT I HAD SPOKEN WITH DR MORENO AND HE WILL NOT BE TAKING THE PT FOR HEART CATH TOMORROW AND THAT HE PREFERS TO WAIT UNTIL THE PT IS MORE STABLE.
--- NOTE | 2019-12-02 17:23 | NUR ---
PULMONARY CONSULT PT SEEN AND EXAMINED BY DR SHERMAN . I UPDATED HIM ON THE PT'S ADMITTING DIAGNOSIS, ANGIOGRAM WITH STENT PLACEMENT AND EVENTS SINCE SET UP AND LAY OUT INSPECTOR WITH INCREASING OXYGEN DEMANDS AND POOR O2 SATURATION AND SUBSEQUENT INTUBATION. HE CHANGED THE VENTILATOR SETTINGS TO PEEP OF 10 AND DECREASEDFIO2 TO 80%. I ASKED HIM IF HE WANTED A FOLLOW UP ABG AND HE SAID TO MONITORTHE PT'S O2 SATS. NOTIFIED INCOMING RT OF ABOVE.
--- NOTE | 2019-12-02 17:27 | NUR ---
VS: 87-18-92% AND 108/73. LAB HERE TO DRAW BLOOD FOR K LEVEL.
--- NOTE | 2019-12-02 17:35 | NUR ---
ORAL TEMP OF 100.3 . REMOVED BLANKET AND TURNED ON FAN. CONTINUE TO MONITOR TEMP.
[2019-12-02] MEDS: FUROSEMIDE 20 MG/2 ML VIAL IV SCH (17:39)
--- NOTE | 2019-12-02 18:21 | NUR ---
ATTEMPTED TO PLACE AN ADDITIONAL IV ACCESS. TRIED TWICE WITHOUT SUCCESS.
--- NOTE | 2019-12-02 18:21 | NUR ---
Respiratory note: RECEIVED PT ON VENT V18, VENT, CONNECTED TO RED OUTLET AND O2 SOURCE. ALARMS ARE SET AND AUDIBLE, AMBU BAG AND MASK AT BEDSIDE. BS ARE FINE COURSE SXD FO SCANT CREAM/BLOOD TINGE. MED NEB TX GIVEN INLINE WITHOUT ADVERSE REACTION NOTED. DR. GUILLAUME WAS AT BEDSIDE AT 1723 MAKING VENT CHANGES PER RN. MD INCREASED PEEP TO [id number] AND HE ALSO TITRATED TO 80% FIO2. PER MD HE DOES NOT WANT ABG UNLESS SATS DROP BELLOW 90%. RN BRANDON AWARE OF COMMUNICATION. I WILL PLACE COMMUNICATION ORDER. RT NAME AND PAGER ASSIGNMENT WRITTEN ON PTS ROOM BOARD WILL CONTINUE TO MONITOR.
--- NOTE | 2019-12-02 18:30 | NUR ---
LASIX/BP HAD GIVEN LASIX 40 MG , 10 MG AT A TIME OVER ABOUT 30 MINUTES. BP NOW 81/45 AND SO INCREASED DOPAMINE TO 8 MCG. CONTINUE TO MONITOR BP.
--- NOTE | 2019-12-02 19:20 | NUR ---
OPENING NOTE RECEIVED REPORT FROM DAY SHIFT RN AND ASSUMED CARE OF PT. PT IS CURRENTLY INTUBATED AND SEDATED. RECEIVED PT ON DIPRIVAN AT 23 MCG AND FENT AT 85 MCG TO LEFT AC. DOPAMINE GOING AT 8 MCG TO LEFT HAND. VITAL SIGNS STABLE WITH NO S/S OF DISTRESS OBSERVED. ASENCIO CATHETER IN TACT AND DRAINING APPROPRIATELY. SCDS APPLIED TO BILATERAL LEGS. ALL EXTREMITIES OFFLOADED WITH PILLOWS. INITIATING IV K REPLACEMENT PER ORDERS. WILL CONTINUE TO MONITOR AND ASSESS PT.
--- NOTE | 2019-12-02 19:30 | NUR ---
REPORT REPORT GIVEN TO MADIHA RNSARTHAK. BEDSIDE CHECK DONE. PT'S TEMP RECHECKED AND WAS 99.4 .
--- NOTE | 2019-12-02 19:38 | NUR ---
LOW K/FRONT DESK ASSISTANT PAGED AND SPOKE WITH RUDDY SHEPPARD NP, REGARDING LOW K OF 3.4 AND PT ON LASIX 40 MG IV BID. ORDER RECEIVED FOR K RIDER 40mEQ IV X1 WITH RECHECK TOMORROW WITH AM LABS.
[2019-12-02] MEDS: POTASSIUM CHL 20MEQ/100ML 100 ML IV SCH ×2 (19:45→22:09)
--- NOTE | 2019-12-02 20:05 | NUR ---
Respiratory note: AT BEDSIDE FOR ROUTINE VENT CHECK NO CHANGE MADE WILL CONTINUE TO MONITOR.
--- NOTE | 2019-12-02 21:30 | NUR ---
FAMILY CALL SPOKE WITH PTS DAUGHTER CESAR. PASSWORD VERIFIED. UPDATED HER ON PT CONDITION AND PLAN OF CARE. MARTIN PHONE NUMBER IS [phone]
[2019-12-02] MEDS: ATORVASTATIN 20 MG TAB PO SCH (22:09)
--- NOTE | 2019-12-02 22:32 | NUR ---
Respiratory note: AT BEDSIDE FOR ROUTINE VENT CHECK MED NEB TX GIVEN INLINE WITHOUT ADVERSE REACTION NOTED. NO CHANGE MADE WILL CONTINUE TO MONITOR.
[2019-12-03] VITALS (105 sets, daily range): BP systolic 82–177; BP diastolic 47–88
[2019-12-03] MEDS ORDERED: SODIUM CHLORIDE 0.9% 1,000 ML IV SCH (00:01)
--- NOTE | 2019-12-03 00:12 | NUR ---
Respiratory note: AT BEDSIDE FOR ROUTINE VENT CHECK HME CHANGED AT THIS TIME, BS ARE FINE COURSE ON LEFT LUNG FIELD, SXD FOR SCANT BLOOD TINGE. NO CHANGE MADE WILL CONTINUE TO MONITOR.
--- NOTE | 2019-12-03 00:15 | NUR ---
FAMILY SPOKE WITH PTS TYESHA. PASSWORD VERIFIED. GAVE HER AN UPDATE ON PT CONDITION AND PLAN OF CARE. VERBALIZED UNDERSTANDING. ALL QUESTIONS AND CONCERNS ADDRESSED.
--- NOTE | 2019-12-03 00:30 | NUR ---
BATH/TERRI CHANGE ADMINISTERED CHG BATH AND BASIN BATH. FULL TERRI CHANGE DONE AND GOWN REPLACED. SKIN ASSESSED WITH NO NEW CHANGES NOTED. OPTIFOAM ON SACRUM STILL IN PLACE.
--- NOTE | 2019-12-03 01:30 | NUR ---
BM PT HAD SMALL SMEAR GREEN BM. CLEANED RUDDY AREA.
[2019-12-03] MEDS: ALBUTEROL SULF 2.5 MG/0.5ML(0.5%) NEB SOLN NEB SCH ×6 (02:15→21:58)
[2019-12-03] MEDS: IPRATROPIUM BROM 0.5 MG/2.5ML INH SOL NEB SCH ×6 (02:15→21:58)
--- NOTE | 2019-12-03 02:15 | NUR ---
Respiratory note: AT BEDSIDE FOR ROUTINE VENT CHECK MED NEB TX GIVEN INLINE WITHOUT ADVERSE REACTION NOTED. NO CHANGE MADE WILL CONTINUE TO MONITOR.
--- NOTE | 2019-12-03 04:06 | NUR ---
Respiratory note: END OF SHIFT VENT CHECK NO CHANGES MADE AT THIS TIME. WILL HAVE DAY SHIFT CONTINUE POC.
[2019-12-03 04:18] LABS: Basophils # (auto) 0 10 ^3/uL (0-0.2); Basophils % (auto) 0.3 % (0.0-2.0); Eosinophils # (auto) 0 10 ^3/uL (0-0.8); Eosinophils % (auto) 0.4 % (0.0-7.0); Hematocrit 37.1 % (41.0-53.0); Hemoglobin 12.7 g/dL (13.5-17.5); Lymphocytes # (auto) 1.4 10 ^3/uL (0.4-5.4); Lymphocytes % (auto) 14.2 % (10.0-50.0); Mean Corpuscular Hemoglobin 29.6 pg (28.0-32.0); Mean Corpuscular Hgb Conc. 34.3 g/dL (32.0-36.0); Mean Corpuscular Volume 86.3 fL (80.0-100.0); Monocytes # (auto) 0.6 10 ^3/uL (0-1.3); Monocytes % (auto) 6.3 % (0.0-12.0); Neutrophils # (auto) 7.7 10 ^3/uL (1.6-8.6); Neutrophils % (auto) 78.8 % (37.0-80.0); Nucleated Red Blood Cells % 0.1 %; Platelet Count (auto) 172 10^3/uL (140-450); Red Cell Distribution Width 13.8 % (11.8-14.3); White Blood Cell 9.8 10^3/uL (4.4-10.8)
[2019-12-03 04:32] LABS: INR 1.14 (0.9-1.15); Partial Thromboplastin Time 36.4 sec (23.64-32.05)
[2019-12-03 04:39] LABS: Potassium 3.5 mmol/L (3.5-5.1)
[2019-12-03 04:49] LABS: Albumin 2.4 g/dL (3.4-5.0); BUN/Creatinine Ratio 13.3; Bilirubin, Total 2.9 mg/dL (0.2-1.0); Calcium 7.3 mg/dL (8.5-10.1); Magnesium 2.4 mg/dL (1.6-2.6); Total Protein 6.4 g/dL (6.4-8.2)
[2019-12-03] MEDS: DOPamine 1600MCG/ML D5W 250 ML IV SCH ×2 (06:04→17:54)
[2019-12-03] MEDS: PIPERACILLIN-TAZOB 3.375GM 100 ML IV SCH ×5 (06:16→23:52)
[2019-12-03] MEDS: FUROSEMIDE 20 MG/2 ML VIAL IV SCH (06:16)
[2019-12-03] MEDS: InsuLIN REG 1unit/0.01ml Soln (100units/ml) SC SCH ×4 (06:32→22:00)
[2019-12-03] MEDS: ACCU-CHEK COMFORT CURVE STRIP VI SCH ×4 (06:32→22:10)
--- NOTE | 2019-12-03 07:15 | NUR ---
REPORT REPORT RECEIVED FROM MADIHA RNSARTHAK. BEDSIDE CHECK DONE. PT RESTING IN BED, SEDATED AND INTUBATED. VSS. CONTINUE TO MONITOR.
--- NOTE | 2019-12-03 07:34 | NUR ---
ASSESSMENT PT RESTING IN BED WITH EYES CLOSED. OPENS EYES TO NAME BUT DOES NOT FOLLOW ANY COMMANDS. SEDATED ON FENTANYL AND DIPRIVAN. PUPILS 3 AND SLUGGISH. + COUGH AND GAG. ON THE VENTILATOR WITH SETTINGS OF: 8 FR ETT/24 AT THE LIP, AC 14, TV 500, 80% FIO2 AND PEEP OF 10. LUNGS CLEAR AND DIMINISHED THROUGHOUT. SUCTIONED ORALLY FOR SMALL AMOUNT OF BLOOD TINGED CLEAR THICK FLUID, AND VIA ETT FOR THICK ALLEN FLUID WITH STREAKS OF BLOOD. O2 SAT OF 97%. TELE SR 89. PALPABLE PULSES TO ALL EXTREMITIES WITH NO EDEMA NOTED. SCDS TO BLE. ABD SOFT WITH + BOWEL SOUNDS. LAST BM WAS ON THE SOCIAL WORK LECTURER. OGT WITH PLACEMENT VERIFIED, NO RESIDUAL NOTED AND CLAMPED. ASENCIO CATHETER DRAINING CLEAR YELLOW URINE. PT TURNED FOR COMFORT TO HIS RIGHT SIDE. SACRAL OPTIFOAM IN PLACE WITH SKIN UNDER NEATH CLEAR. SKIN AROUND RECTUM IS AN OLD HEALED PINK. ABRASION NOTED TO THE BACK OF HIS HEAD. DRESSING TO RIGHT GROIN, FROM ANGIOGRAM, REMOVED. SKIN UNDER IS PINK. RAILS UP X4 AND BED IN LOW POSITION. CONTINUE TO MONITOR.
--- NOTE | 2019-12-03 07:34 | NUR ---
PT TEACHING PT WITH LIMITED BENEFIT FROM PT TEACHING HE IS SEDATED WHILE ON THE VENTILATOR. Addendum: 12/03/19 at 0814 by Chani Schuler RN Amended: Links added.
[2019-12-03] MEDS: CARVEDILOL 3.125 MG TAB PO SCH ×2 (08:00→18:00)
[2019-12-03] MEDS: ASPirin 81 mg TAB PO SCH (09:43)
[2019-12-03] MEDS: PANTOPRAZOLE 40 MG/10 ML VIAL INJ IV SCH (09:43)
[2019-12-03] MEDS: TICAGRELOR 90 MG TAB PO SCH ×2 (09:43→22:16)
[2019-12-03] MEDS: POTASSIUM EFFERVESENT TAB 25 MEQ PO SCH (09:44)
[2019-12-03] MEDS: LISINOPRIL 5 MG TAB PO SCH (09:44)
--- NOTE | 2019-12-03 10:45 | NUR ---
MD VISIT PT SEEN AND EXAMINED BY DR SHERMAN. I UPDATED HIM ON THE PT'S CURRENT CONDITION INCLUDING LABS, ABG, AND CXR RESULTS. HE CHANGED THE FIO2 TO 60% AND SPOKE WITH RT AZUCENA, ABOUT TRYING TO TAPER THE FIO2 DOWN TO 50% IF THE PT TOLERATES.
--- NOTE | 2019-12-03 10:51 | NUR ---
FAMILY RECEIVED A PHONE CALL FROM PT'S , TYESHA. AFTER VERIFYING PASSWORD, I UPDATED HER AND ANSWERED HER QUESTIONS. I DID DISCUSS THE POSSIBILITY OF THE PT NEEDING A TLC OR PICC LINE, BUT STATED I WOULD CALL BACK FOR CONSENT ONCE I HAVE AN ORDER FROM THE PHYSICIAN. SHE EXPRESSED UNDERSTANDING.
[2019-12-03] MEDS: NOREPINEPHRINE 8 MG/250ML KIT 250 ML IV SCH (11:19)
--- NOTE | 2019-12-03 11:19 | NUR ---
FAMILY/PICC LINE CALLED AND SPOKE WITH PT'S , TYESHA, REGARDING CONSENT FOR PLACING A PICC LINE. SHE WOULD LIKE TO TALK WITH OTHER FAMILY MEMBERS ABOUT IT AND WILL CALL ME BACK.
[2019-12-03] MEDS: MIDAZOLAM DRIP 50 mg/50mL 50 ML IV SCH (11:20)
[2019-12-03] MEDS: fentaNYL Drip 2500mCg/250mlNS 250 ML IV SCH (11:34)
[2019-12-03] MEDS: PROPOFOL 100 ML IV SCH ×3 (12:46→23:07)
[2019-12-03] MEDS: SODIUM CHLORIDE 0.9% 1,000 ML IV SCH (12:47)
[2019-12-03] MEDS ORDERED: LIDOCAINE 1% (LOCAL ANESTH.) PF 5ml SDV ID ONE (15:00)
--- NOTE | 2019-12-03 15:09 | NUR ---
assessment Patient is a 69 year old male who is on a vent in ICU. Per patients Amy prior to admission patient lived home with her and was independent. Patient has a cane for home use. Patient tested negative for Covid 19. I informed Amy patients post discharge needs to be determined after extubation and prior to discharge. Amy verbalized understanding. Addendum: 12/03/19 at 1518 by Carolynn FOREMAN Amended: Links added.
--- NOTE | 2019-12-03 16:01 | NUR ---
PICC line placement Patient significant other educated on need for PICC line placement. All risks and benefits explained and all questions and concerns addressed prior to procedure. Noted past medical history and allergies with no contraindications. INR and Plt counts within acceptable range. 5 fr PICC line inserted via RIGHT BASILIC vein using [employer] US and Tip Location System. Sterile technique with maximum barrier precautions utilized. Blood return obtained from each of the lumens and each flushed easily with NS using proper technique. PICC secured with Stat-lock; biodisc and occlusive dressing applied. Stat portable chest x-ray obtained for PICC tip placement. *Baseline Arm Circumference 35cm, internal length 46cm, external length 0cm. PICC lot # [id number].
--- NOTE | 2019-12-03 16:08 | NUR ---
OK to use PICC line Xray completed. OK to use PICC line. PRIMARY RN NOTIFIED.
--- NOTE | 2019-12-03 17:50 | NUR ---
PT TURNED AND MADE COMFORTABLE. ACCUCHECK OF 108 WITH NO COVERAGE NEEDED. ALL IV MEDICATIONS NOW INFUSING THROUGH THE NEW PICC LINE TO THE RUE, SITE CLEAR. DC'D THE PERIPHERAL IV TO THE LEFT HAND. IV ACCESS IN THE LFA IS NOW A SALINE LOCK. CONTINUE TO MONITOR.
[2019-12-03] MEDS: FUROSEMIDE 100 MG/10ML VIAL IV SCH (18:28)
--- NOTE | 2019-12-03 19:00 | NUR ---
Opening shift note: Primary RN Rob received report on patient. Pt intubated ETT 8/ 24cm@LL, Vent settings: AC 14/TV 500, FIO2 50%, PEEP 10, O2 Sat 92%, bilateral lung sounds diminished. Right upper arm PICC line triple lumen, infusing Propofol @ 25, Fentanyl @ 85, Dopamine @ 4. OG tube clamped, placement checked. Douglass catheter draining via gravity with yellow urine. Safety precautions in place. Will continue to monitor. Patient resting comfortably in bed with no s/s of discomfort or distress.
--- NOTE | 2019-12-03 19:13 | NUR ---
REPORT REPORT GIVEN TO ONCOMING RNS, SHEYLA. BEDSIDE CHECK DONE.
[2019-12-03] MEDS: SODIUM CHLOR 0.9% PF (SALINE LOCK) 10ML VIAL/SYR IV SCH (22:10)
[2019-12-03] MEDS: ATORVASTATIN 20 MG TAB PO SCH (22:16)
[2019-12-04] VITALS (107 sets, daily range): BP systolic 93–122; BP diastolic 55–75
[2019-12-04] MEDS: IPRATROPIUM BROM 0.5 MG/2.5ML INH SOL NEB SCH ×6 (02:25→22:24)
[2019-12-04] MEDS: ALBUTEROL SULF 2.5 MG/0.5ML(0.5%) NEB SOLN NEB SCH ×6 (02:25→22:24)
--- NOTE | 2019-12-04 02:46 | NUR ---
Urine output: Patient had 1,350 of yellow urine output.
--- NOTE | 2019-12-04 03:21 | NUR ---
Bed bath: RN gave patient a bath and full linen change. Patient tolerated intervention well with no s/s of discomfort or distress.
[2019-12-04 04:13] LABS: Basophils # (auto) 0.1 10 ^3/uL (0-0.2); Basophils % (auto) 1.1 % (0.0-2.0); Eosinophils # (auto) 0.1 10 ^3/uL (0-0.8); Eosinophils % (auto) 1.8 % (0.0-7.0); Hematocrit 30.5 % (41.0-53.0); Hemoglobin 10.8 g/dL (13.5-17.5); Lymphocytes # (auto) 0.8 10 ^3/uL (0.4-5.4); Lymphocytes % (auto) 12.8 % (10.0-50.0); Mean Corpuscular Hemoglobin 31.1 pg (28.0-32.0); Mean Corpuscular Hgb Conc. 35.5 g/dL (32.0-36.0); Mean Corpuscular Volume 87.5 fL (80.0-100.0); Monocytes # (auto) 0.5 10 ^3/uL (0-1.3); Monocytes % (auto) 7.1 % (0.0-12.0); Neutrophils # (auto) 5.1 10 ^3/uL (1.6-8.6); Neutrophils % (auto) 77.2 % (37.0-80.0); Nucleated Red Blood Cells % 0.1 %; Platelet Count (auto) 153 10^3/uL (140-450); Red Blood Cells 3.48 10^6/uL (4.5-5.90); Red Cell Distribution Width 13.7 % (11.8-14.3); White Blood Cell 6.5 10^3/uL (4.4-10.8)
[2019-12-04] MEDS: PROPOFOL 100 ML IV SCH ×4 (05:00→23:58)
[2019-12-04] MEDS: SODIUM CHLORIDE 0.9% 1,000 ML IV SCH ×2 (06:00→11:57)
[2019-12-04] MEDS: FUROSEMIDE 100 MG/10ML VIAL IV SCH ×2 (06:16→18:22)
[2019-12-04] MEDS: PIPERACILLIN-TAZOB 3.375GM 100 ML IV SCH ×4 (06:16→23:30)
[2019-12-04] MEDS: ACCU-CHEK COMFORT CURVE STRIP VI SCH ×4 (06:37→22:24)
[2019-12-04] MEDS: InsuLIN REG 1unit/0.01ml Soln (100units/ml) SC SCH ×4 (06:38→22:00)
--- NOTE | 2019-12-04 06:41 | NUR ---
Urine output: Patient had 200 of yellow urine output.
--- NOTE | 2019-12-04 07:15 | NUR ---
REPORT REPORT RECEIVED FROM GERALD COPELAND. Addendum: 12/04/19 at 1348 by Chani Schuler RN BEDSIDE CHECK DONE.
[2019-12-04] MEDS: CARVEDILOL 3.125 MG TAB PO SCH ×2 (08:00→18:00)
--- NOTE | 2019-12-04 08:30 | NUR ---
PT TEACHING PT UNABLE TO BENEFIT FROM PT TEACHING AT THIS TIME DUE TO SEDATION WHILE INTUBATED. Addendum: 12/04/19 at 1656 by Chani Schuler RN Amended: Links added.
--- NOTE | 2019-12-04 08:30 | NUR ---
ASSESSMENT PT RESTING IN BED WITH EYES CLOSED. OPENS EYES TO NAME AND SQUEEZES MY HAND WHEN ASKED. MITTENS TO BOTH HANDS TO PREVENT REMOVAL OF TUBES. SEDATED ON DIPRIVAN AT 24.88 MCG/KG/MIN AND FENTANYL AT 135 MCG/HR. PT ON THE VENTILATOR WITH SETTINGS OF : 8 FR ETT/ 24 AT THE LIP, AC 14, TV 500, 50% AND PEEP OF 10. LUNGS COARSE ON THE RIGHT AND CLEAR ON THE LEFT WITH INSPIRATORY CRACKLES POSTERIOR BASES. SUCTIONED VIA ETT FOR SMALL AMOUNT OF THICK CREAMY ALLEN FLUID WITH STREAKS OF RED BLOOD. TELE SR [address]PRESSION IN LEADS II AND AVF. PALPABLE PULSES TO ALL EXTREMITIES WITH NO EDEMA NOTED. SCDS TO BLE. ABD SOFT WITH HYPOACTIVE BOWEL SOUNDS. OGT WITH + PLACEMENT AND 10 ML BILE RESIDUAL NOTED. LAST BM WAS 12/02. FOELY CATHETER DRAINING CLEAR DARRICK URINE. TURNED FOR COMFORT. ABRASION NOTED TO THE BACK OF HIS HEAD. OPTIFOAM TO SACRUM, SKIN CLEAR UNDER DRESSING. OLD HEALED PINK NOTED TO RECTA AREA. RAILS UP X4 AND BED IN LOW POSITION FOR PT SAFETY. CONTINUE TO MONITOR.
[2019-12-04] MEDS: DOPamine 1600MCG/ML D5W 250 ML IV SCH ×3 (08:43→23:28)
--- NOTE | 2019-12-04 10:00 | NUR ---
CALLED AND LEFT A MESSAGE FOR LUCIANA SEAMLESS TUBE ROLLER, ASKING FOR TUBE FEEDING FORMULA RECOMMENDATION AND GOAL RATE. AWAITING A CALL BACK.
[2019-12-04] MEDS: POTASSIUM EFFERVESENT TAB 25 MEQ PO SCH (10:31)
[2019-12-04] MEDS: ASPirin 81 mg TAB PO SCH (10:31)
[2019-12-04] MEDS: PANTOPRAZOLE 40 MG/10 ML VIAL INJ IV SCH (10:31)
[2019-12-04] MEDS: SODIUM CHLOR 0.9% PF (SALINE LOCK) 10ML VIAL/SYR IV SCH ×2 (10:31→21:50)
[2019-12-04] MEDS: TICAGRELOR 90 MG TAB PO SCH ×2 (10:31→21:51)
[2019-12-04] MEDS: LISINOPRIL 5 MG TAB PO SCH (10:32)
[2019-12-04] MEDS: MIDAZOLAM DRIP 50 mg/50mL 50 ML IV SCH (11:20)
[2019-12-04] MEDS: fentaNYL Drip 2500mCg/250mlNS 250 ML IV SCH (11:52)
--- NOTE | 2019-12-04 12:00 | NUR ---
MD VISIT PT SEEN BY DR ADAMS. I UPDATED HER ON THE PT'S CURRENT CONDITION AND TRYING TO GET INFORMATION FROM THE HAND ALTERATIONS TAILOR REGARDING TUBE FEEDING FORMULA RECOMMENDATIONS AND GOAL RATE.
--- NOTE | 2019-12-04 13:44 | NUR ---
CALLED AND LEFT A MESSAGE FOR THE OTHER LOOM CHANGEOVER OPERATOR ASKING ABOUT RECOMMENDATION OF FORMULA AND GOAL RATE FOR TUBE FEEDING FOR THIS PT. CALLED AND SPOKE WITH DIETARY STAFF ASKING THEM TO ASK THE LOOM CHANGEOVER OPERATOR TO CALL ME.
--- NOTE | 2019-12-04 15:30 | NUR ---
HANDS UP AND TRYING TO PULL AT ETT EVEN WITH MITTENS ON BOTH HANDS, INCREASED DIPRIVAN DRIP TO 27 MCG.
--- NOTE | 2019-12-04 15:47 | NUR ---
FAMILY/MD RECEIVED A CALL FROM THE PT'S AND AFTER VERIFYING PASSWORD, I UPDATED HER ON THE PT'S CURRENT CONDITION . SHE ASKED IF PT IS GOING FOR HEART CATH TOMORROW. DR MORENO HASN'T MADE ROUNDS YET TODAY, SO I WILL CONTACT HIM AND THEN CALL THE BACK.
--- NOTE | 2019-12-04 15:55 | NUR ---
PT RESTLESS AND NODS HEAD YES WHEN ASKED IF HAVING PAIN. INCREASED FENTANYL TO 170 MCG/HR . 112/75. CONTINUE TO MONITOR,
[2019-12-04] MEDS ORDERED: Glucerna 1.2 Cal 1Liter BOTTLE GT SCH (18:45)
--- NOTE | 2019-12-04 19:15 | NUR ---
REPORT REPORT GIVEN TO ADRIANA CLEARY RN.
[2019-12-04] MEDS: ATORVASTATIN 20 MG TAB PO SCH (21:52)
--- NOTE | 2019-12-04 22:30 | NUR ---
[id number],T WAS MODERATELY SEDATED ANS RESPONDING BY NOXIOUS STIMULI. NO GRIMACING NOR RESP.DISTRESS
--- NOTE | 2019-12-04 22:31 | NUR ---
AT 2200,ORAL CARE GIVEN AND REPOSITIONED TO THE SIDE.AFEBRILE. MITTENS ARE IN PLACE AND HOB UP TO 45 DEFGREES. iV SITE IS PATENT
--- NOTE | 2019-12-04 22:33 | NUR ---
AT 2230 RATE DOWN TO 12 ORDERED
[2019-12-05] VITALS (104 sets, daily range): BP systolic 81–126; BP diastolic 46–76
--- NOTE | 2019-12-05 01:31 | NUR ---
AT OOOO, PT AWAKENED WHEN SUCTIONED? ORAL CARE DONE
[2019-12-05] MEDS: IPRATROPIUM BROM 0.5 MG/2.5ML INH SOL NEB SCH ×6 (02:14→22:02)
[2019-12-05] MEDS: ALBUTEROL SULF 2.5 MG/0.5ML(0.5%) NEB SOLN NEB SCH ×6 (02:14→22:02)
--- NOTE | 2019-12-05 02:20 | NUR ---
AT 0200, PT WAS GIVEN A BATH AND ORAL CARE, COMPLETE BED BATH GIVEN
[2019-12-05] MEDS: fentaNYL Drip 2500mCg/250mlNS 250 ML IV SCH (03:53)
[2019-12-05] MEDS: PROPOFOL 100 ML IV SCH ×4 (04:29→23:20)
--- NOTE | 2019-12-05 04:34 | NUR ---
0400-ORAL CARE DONE, REPOSITIONED. ON SR AND AFEBRILE
[2019-12-05 04:50] LABS: Hematocrit 35.4 % (41.0-53.0)
[2019-12-05 05:06] LABS: Calcium 7.6 mg/dL (8.5-10.1); Potassium 3.4 mmol/L (3.5-5.1)
--- NOTE | 2019-12-05 05:27 | NUR ---
TROP IS 13.6 ANDD TRENDING DOWN
--- NOTE | 2019-12-05 05:33 | NUR ---
K TODAY IS 3.4 AND BNP IS13,600. FRANKLIN WAS CALLED RONY INFORM THE LOW K
[2019-12-05] MEDS: FUROSEMIDE 100 MG/10ML VIAL IV SCH ×2 (05:47→17:57)
[2019-12-05] MEDS: PIPERACILLIN-TAZOB 3.375GM 100 ML IV SCH ×4 (05:49→23:30)
[2019-12-05] MEDS ORDERED: POTASSIUM CHL 20MEQ/100ML 100 ML IV ONE (05:59)
[2019-12-05] MEDS: POTASSIUM CHLORIDE 20 MEQ in D5W 5% 1,000 ML IV SCH ×2 (06:00→10:15)
[2019-12-05] MEDS: InsuLIN REG 1unit/0.01ml Soln (100units/ml) SC SCH ×4 (06:59→21:51)
[2019-12-05] MEDS: ACCU-CHEK COMFORT CURVE STRIP VI SCH ×4 (07:00→21:52)
[2019-12-05] MEDS: CARVEDILOL 3.125 MG TAB PO SCH ×2 (08:00→18:00)
--- NOTE | 2019-12-05 09:03 | NUR ---
PATIENTS TYESHA CALLED FOR UPDATE PROVIDED PASSWORD, UPDATED ON PLAN OF CARE.
--- NOTE | 2019-12-05 09:05 | NUR ---
SEDATION VACATION- WEANING SEDATION PATIENT TOLERATES Addendum: 12/05/19 at 1100 by Sandra Petty RN Amended: Links added.
--- NOTE | 2019-12-05 09:55 | NUR ---
DR ADAMS AT BEDSIDE DISCUSSED PATIENTS STATUS AND PLAN OF CARE. NEW ORDERS PLACED
[2019-12-05] MEDS: LISINOPRIL 5 MG TAB PO SCH (10:00)
[2019-12-05] MEDS: SODIUM CHLOR 0.9% PF (SALINE LOCK) 10ML VIAL/SYR IV SCH ×2 (10:22→21:50)
[2019-12-05] MEDS: POTASSIUM EFFERVESENT TAB 25 MEQ PO SCH (10:35)
[2019-12-05] MEDS: ASPirin 81 mg TAB PO SCH (10:35)
[2019-12-05] MEDS: PANTOPRAZOLE 40 MG/10 ML VIAL INJ IV SCH (10:35)
[2019-12-05] MEDS: TICAGRELOR 90 MG TAB PO SCH ×2 (10:36→21:50)
[2019-12-05] MEDS: MIDAZOLAM DRIP 50 mg/50mL 50 ML IV SCH (11:20)
[2019-12-05] MEDS: SODIUM CHLORIDE 0.9% 1,000 ML IV SCH (12:00)
--- NOTE | 2019-12-05 13:17 | NUR ---
Nutrition Followup Notes Pt wt is 111.0 kg Pt is sedated with propofol running @ 13.608 ml/hr, providing 259 kcals from lipids. Pt is intubated, NPO. Recommend EN nutrition support of Jevity 1.2 @ 40 ml/hr goal rate with current running rate of propofol (13.608 ml/hr), to be adjusted as rate of propofol changes. If pt is not on propofol the recommended rate of Jevity 1.2 is 50 ml/hr goal rate. Will continue to monitor PO status, skin status, pertinent labs and weight trends. Will f/u in 2 to 3 days. Est energy needs: 1590-9820 kcals (12-15 kcal/kgBW) Est protein needs: 77-84 gms/day (1.0-1.1 gm/kgBW) Will continue to monitor and reassess prn. LABS: GLUC 113 H GI: Last BM noted on 12/03/19, pt incontinent per RN doc BS: 12 high risk, please refer to wound assessment report for full details PES: Problem 1) Obesity r/t energy intake in excess of energy needs aeb 176% IBW and BMI of 40.4 kg/m2 2) Altered nutrition related lab values r/t current/chronic medical condition aeb hyperglyc, hypercalc, elev LFTs, elev Troponin, elev lipids Comments Will continue to monitor PO status, skin status, pertinent labs and weight trends. Will f/u in 2 to 3 days. 1) Continue to closely monitor pt PO intake to meet at least 75% of meals 2) Refer pt to RD for nutrition education upon D/C 3) Continue current plan of care
[2019-12-05] MEDS: DOPamine 1600MCG/ML D5W 250 ML IV SCH (15:00)
--- NOTE | 2019-12-05 17:07 | NUR ---
PATIENTS , TYESHA CALLED FOR UPDATE PROVIDED PASSWORD, UPDATED ON PATIENTS STATUS AND PLAN OF CARE
--- NOTE | 2019-12-05 19:24 | NUR ---
reports received from [place] director of agriculture and no resp. distress, hob up 45 degree. On sr and afebrile
--- NOTE | 2019-12-05 21:25 | NUR ---
2125, ORAL CARE DONE. ON TECHNICAL IMPLEMENTATION LEAD SEDATION, RESPONDING TO VOICE, REPOSITIONED. ORAL CARE DONE
[2019-12-05] MEDS: ATORVASTATIN 20 MG TAB PO SCH (21:50)
[2019-12-06] VITALS (91 sets, daily range): BP systolic 85–157; BP diastolic 6–85
--- NOTE | 2019-12-06 00:13 | NUR ---
2230 RESTLESS AND AGITATED, TRYING TO REACH ETT, MITTENS IN PLACE. CLOSELY WATCHED
--- NOTE | 2019-12-06 00:22 | NUR ---
0000, COMPLETE BED BATH DONE AND COMPLTE LINEN CHANGE
--- NOTE | 2019-12-06 01:04 | NUR ---
0100 AWAKE AND OPEN EYES
[2019-12-06] MEDS: DOPamine 1600MCG/ML D5W 250 ML IV SCH ×2 (01:58→06:53)
[2019-12-06] MEDS: IPRATROPIUM BROM 0.5 MG/2.5ML INH SOL NEB SCH ×6 (02:14→21:57)
[2019-12-06] MEDS: ALBUTEROL SULF 2.5 MG/0.5ML(0.5%) NEB SOLN NEB SCH ×6 (02:14→22:48)
[2019-12-06 05:12] LABS: BUN/Creatinine Ratio 16.8; Calcium 7.8 mg/dL (8.5-10.1); Potassium 3.8 mmol/L (3.5-5.1)
[2019-12-06] MEDS: FUROSEMIDE 100 MG/10ML VIAL IV SCH ×2 (06:33→18:01)
[2019-12-06] MEDS: PIPERACILLIN-TAZOB 3.375GM 100 ML IV SCH ×3 (06:35→18:01)
[2019-12-06] MEDS: InsuLIN REG 1unit/0.01ml Soln (100units/ml) SC SCH ×4 (06:41→21:58)
[2019-12-06] MEDS: ACCU-CHEK COMFORT CURVE STRIP VI SCH ×4 (06:44→21:20)
[2019-12-06] MEDS: CARVEDILOL 3.125 MG TAB PO SCH ×2 (08:00→18:00)
[2019-12-06] MEDS: LISINOPRIL 5 MG TAB PO SCH (10:00)
[2019-12-06] MEDS: PANTOPRAZOLE 40 MG/10 ML VIAL INJ IV SCH (10:23)
[2019-12-06] MEDS: SODIUM CHLOR 0.9% PF (SALINE LOCK) 10ML VIAL/SYR IV SCH ×2 (10:25→21:16)
[2019-12-06] MEDS: POTASSIUM EFFERVESENT TAB 25 MEQ PO SCH (10:25)
[2019-12-06] MEDS: ASPirin 81 mg TAB PO SCH (10:25)
[2019-12-06] MEDS: TICAGRELOR 90 MG TAB PO SCH ×2 (10:25→21:18)
[2019-12-06] MEDS: MIDAZOLAM DRIP 50 mg/50mL 50 ML IV SCH (11:20)
[2019-12-06] MEDS: fentaNYL Drip 2500mCg/250mlNS 250 ML IV SCH (11:30)
[2019-12-06] MEDS: SODIUM CHLORIDE 0.9% 1,000 ML IV SCH (12:10)
--- NOTE | 2019-12-06 12:23 | NUR ---
DECREASED PEEP TO 8
--- NOTE | 2019-12-06 14:15 | NUR ---
DR ROSALES AT BEDSIDE DISCUSSED PATIENTS STATUS AND RECEIVED NEW ORDERS
--- NOTE | 2019-12-06 14:30 | NUR ---
PT PLACED ON CPAP PS 8 PEEP5, 30% FIO2 BY RT MIGUEL Arellano PT TOLERATING WELL.
--- NOTE | 2019-12-06 15:00 | NUR ---
LUNG MECHANICS ON CPAP: NIF -28 VC 1808 RSBI 33 LEAK TEST 452
--- NOTE | 2019-12-06 15:00 | NUR ---
SPOKE WITH TYESHA SULLIVAN, PATIENTS PROVIDED PASSWORD. UPDATED ON CURRENT PATIENTS STATUS AND PLAN OF CARE
--- NOTE | 2019-12-06 15:20 | NUR ---
PT EXTUBATED PER DR ROSALES ORDERS. PT PLACED ON 40% COOL MIST AEROSOL. SPO2 95%. NO STRIDOR. RESPIRATIONS ARE EVEN AND UNLABORED. PT HAS STRONG PRODUCTIVE COUGH.
--- NOTE | 2019-12-06 17:39 | NUR ---
TYESHA SULLIVAN CALLED FOR UPDATE PROVIDED PASSWORD, UPDATED ON PATIENTS CURRENT STATUS AND PLAN OF CARE. ADDRESSED CONCERNS
--- NOTE | 2019-12-06 19:38 | NUR ---
AT 0730 [place] VIAL FILLER GAVE ME REPORT. PT RECEIVED TRYING TO REMOVED MASK AND ADVISED NOT TO REMOVED BUT SOMEWHAT HARD HEADED. NO RESP DISTRESS. ORAL CARE GIVEN. REPOSITIONED . ON SR. AFEBRILE
[2019-12-06] MEDS: ATORVASTATIN 20 MG TAB PO SCH ×2 (21:18→21:22)
--- NOTE | 2019-12-06 22:47 | NUR ---
AT 1942 PLACED ON 6 LITERS PER CANNULA. HAD A LOOSE SBRWONISH YELLOW STOOL AND COMPLETE BED BATH AND LINEN CHANGED DONE
[2019-12-07] VITALS (13 sets, daily range): BP systolic 97–138; BP diastolic 50–82
[2019-12-07] MEDS: PIPERACILLIN-TAZOB 3.375GM 100 ML IV SCH ×4 (00:25→17:57)
[2019-12-07] MEDS: DOPamine 1600MCG/ML D5W 250 ML IV SCH (00:26)
--- NOTE | 2019-12-07 00:36 | NUR ---
2199, REMOVED O2 MOST OF THE TIME AND PUT IT BACK AND EXPLAINED HE NEEDED IT LL THE TIME
--- NOTE | 2019-12-07 00:37 | NUR ---
AT 0000, AWAKE MOST OF THE TIME, TURNED OFF THE tv AND DARKENED THE ROOM
[2019-12-07] MEDS: IPRATROPIUM BROM 0.5 MG/2.5ML INH SOL NEB SCH ×6 (02:40→21:37)
[2019-12-07] MEDS: ALBUTEROL SULF 2.5 MG/0.5ML(0.5%) NEB SOLN NEB SCH ×6 (02:40→21:37)
--- NOTE | 2019-12-07 02:41 | NUR ---
0200pt is sleeping. on sr
--- NOTE | 2019-12-07 03:39 | NUR ---
PT FIO2 DECREASED TO 5L VIA NC. POX 94-95%
[2019-12-07 04:13] LABS: Basophils # (auto) 0 10 ^3/uL (0-0.2); Basophils % (auto) 0.3 % (0.0-2.0); Eosinophils # (auto) 0.1 10 ^3/uL (0-0.8); Eosinophils % (auto) 0.8 % (0.0-7.0); Hematocrit 40.2 % (41.0-53.0); Hemoglobin 13.6 g/dL (13.5-17.5); Lymphocytes # (auto) 1.5 10 ^3/uL (0.4-5.4); Lymphocytes % (auto) 11.6 % (10.0-50.0); Mean Corpuscular Hemoglobin 29.1 pg (28.0-32.0); Mean Corpuscular Hgb Conc. 33.9 g/dL (32.0-36.0); Mean Corpuscular Volume 85.8 fL (80.0-100.0); Monocytes # (auto) 1.1 10 ^3/uL (0-1.3); Monocytes % (auto) 8.6 % (0.0-12.0); Neutrophils # (auto) 10.2 10 ^3/uL (1.6-8.6); Neutrophils % (auto) 78.7 % (37.0-80.0); Nucleated Red Blood Cells % 0.3 %; Platelet Count (auto) 331 10^3/uL (140-450); Red Blood Cells 4.68 10^6/uL (4.5-5.90); Red Cell Distribution Width 13.9 % (11.8-14.3)
[2019-12-07 04:53] LABS: Albumin 2.6 g/dL (3.4-5.0); Calcium 8.4 mg/dL (8.5-10.1)
[2019-12-07 04:57] LABS: Bilirubin, Total 1.8 mg/dL (0.2-1.0); Potassium 2.7 mmol/L (3.5-5.1); Total Protein 7.5 g/dL (6.4-8.2)
--- NOTE | 2019-12-07 05:15 | NUR ---
0400, RESTLESS AND ANXIOUS, SOMEWHAT CONFUSED, REPOSITIONED AND ORAL CARE DONE
--- NOTE | 2019-12-07 05:16 | NUR ---
0500, DESATURATING TO 88% , SO INCREASED TO 6 LITERS PER CANNULA
--- NOTE | 2019-12-07 05:19 | NUR ---
AT 0520 THE HOSPITALIST WAS CALLED FOR LOW K LEVEL OF 2.7 AND TROP OF 6.4
--- NOTE | 2019-12-07 05:36 | NUR ---
AT [address] STEWART WAS CALLED ABOUT K-2.7, WBC-13K AND BNP IS 6400. WILL WAIT AND GIVE POTASSIUM IST AND WILL GIVE THE LASIX AT 0700AM
--- NOTE | 2019-12-07 05:47 | NUR ---
MG IS 1.8 , WILL INFORM HIM TOO
[2019-12-07] MEDS ORDERED: POTASSIUM CHL 20MEQ/100ML 200 ML IV ONE (06:11)
[2019-12-07] MEDS ORDERED: POTASSIUM CHLORIDE 40 MEQ in D5W 5% 1,000 ML IV SCH (06:15)
[2019-12-07] MEDS: FUROSEMIDE 100 MG/10ML VIAL IV SCH ×2 (06:19→17:57)
[2019-12-07] MEDS: InsuLIN REG 1unit/0.01ml Soln (100units/ml) SC SCH ×4 (06:34→22:00)
[2019-12-07] MEDS: ACCU-CHEK COMFORT CURVE STRIP VI SCH ×4 (06:35→22:27)
[2019-12-07] MEDS: POTASSIUM CHL 20MEQ/100ML 100 ML IV SCH ×2 (07:30→09:08)
--- NOTE | 2019-12-07 08:00 | NUR ---
OPENING NOTE PATIENT LYING IN HOSPITAL BED, EYES CLOSED, RESPIRATIONS EVEN AND UNLABORED ON 5L NASAL CANNULA. VITALS WNL. CONNECTED TO BEDSIDE MONITORS. ASENCIO PRESENT DRAINING TO GRAVITY, PATIENT REFUSES SCDS ON BILATERAL LOWER LEGS. BED IN LOW POSITION. CALL LIGHT WITHIN REACH, WITHIN VIEW OF NURSES STATION. WILL CONTINUE TO MONITOR
[2019-12-07] MEDS: CARVEDILOL 3.125 MG TAB PO SCH ×2 (09:08→17:59)
--- NOTE | 2019-12-07 09:20 | NUR ---
DR CAMPUZANO AT BEDSIDE UPDATED ON STATUS THROUGHOUT THE NIGHT, DISCUSSED PLAN OF CARE, NEW ORDERS RECEIVED
[2019-12-07] MEDS: LISINOPRIL 5 MG TAB PO SCH (10:00)
--- NOTE | 2019-12-07 10:00 | NUR ---
WOUND CARE NOTE: WOUND CARE TEAM HAS BEEN MONITORING PATIENT FOR SKIN INTEGRITY D/T LOW SAMEER/INTUBATION STATUS. CURRENTLY, PATIENT HAS BEEN EXTUBATED. HE HAS CURRENT SAMEER SCORE OF 14. PATIENT IS ABLE TO SELF TURN/REPOSITION SELF. HE HAS NO OPEN WOUNDS, NO AREAS WITH NON BLANCHABLE REDNESS. SKIN/WOUND CARE PLAN UPDATED. NO FURTHER WOUND CARE MONITORING NEEDED AT THIS TIME.
--- NOTE | 2019-12-07 10:34 | NUR ---
SPOKE WITH DR ROSALES UPDATED ON PATIENTS STATUS. NO NEW ORDERS
[2019-12-07] MEDS: PANTOPRAZOLE 40 MG/10 ML VIAL INJ IV SCH (11:51)
[2019-12-07] MEDS: SODIUM CHLOR 0.9% PF (SALINE LOCK) 10ML VIAL/SYR IV SCH ×2 (11:51→22:19)
[2019-12-07] MEDS: ASPirin 81 mg TAB PO SCH (11:51)
[2019-12-07] MEDS: POTASSIUM EFFERVESENT TAB 25 MEQ PO SCH (11:51)
[2019-12-07] MEDS: TICAGRELOR 90 MG TAB PO SCH ×2 (11:51→22:21)
--- NOTE | 2019-12-07 12:43 | NUR ---
PATIENTS TYESHA SULLIVAN CALLED FOR UPDATE PROVIDED PASSWORD, UPDATED ON PATIENTS CURRENT STATUS AND PLAN OF CARE.
[2019-12-07] MEDS: Glucerna Carbsteady SHAKE Vanilla 8oz PO SCH ×2 (13:05→18:00)
--- NOTE | 2019-12-07 15:00 | NUR ---
BED ASSIGNMENT GIVEN- 277A REPORT GIVEN TO JANEL RADER PATIENT WILL TRANSFER TO TELEMETRY VIA HOSPITAL BED WITH ALL BELONGINGS.
--- NOTE | 2019-12-07 15:09 | NUR ---
NOTIFIED PATIENTS OF NEW ROOM ASSIGNMENT ADDRESSED QUESTIONS AND CONCERNS
--- NOTE | 2019-12-07 15:31 | NUR ---
Telemetry admit from ER EVERARDO LEONG admitted to Telemetry unit after SBAR received from Sandra RADER in ICU. Patient oriented to JANEL BROWN RN primary RN, unit, room, bed, and unit policies regarding patient care and visiting hours. Patient now on continuous telemetry monitoring, tele box # 82 . Patient placed on bedside oxygen, weighed by bedscale and encouraged to call if they need any assistance. All questions and concerns addressed, patient verbalized understanding.
--- NOTE | 2019-12-07 16:00 | NUR ---
Patient had small bowel movement, placed z guard on inner gluteal folds. Patient complains of nausea and had a small amount of yellow vomit. Vital signs 122/75 , temp 98.0, heart rate 89, oxygen saturation 95% on 4 liters nasal canula, respirations 18. Patient is SOB upon speaking. Will continue to monitor for any changes in condition.
--- NOTE | 2019-12-07 18:31 | NUR ---
Respiratory note: AT BEDSIDE FOR MED EDGARD DUCKWORTH.
--- NOTE | 2019-12-07 19:15 | NUR ---
Received report from the Day Shift RN Fiorella. Pt. in bed resting, calm and quiet. initial assessment done.
--- NOTE | 2019-12-07 19:46 | NUR ---
Pt. SR @ 84 with PAC @ Tele # 63. Pt. denies chest pain. Will continue to monitor pt. pain and comfort level during the shift.
--- NOTE | 2019-12-07 20:00 | NUR ---
Received pt. in bed resting, half asleep,half awake, easily arousable but is weak and looks tired or fatique. Pt. awakened and is oriented x 3-4, speaks Arabic and understands Slovenian, able to respond to Nurse's voice and answers simple health questions. Pt. @ 4L/NC continuous, lungs sounds diminished and breathing slow and regular. Pt. on Tele # 63 SR @ the 80's to 90's @ the monitor. Pt. denies chest pain or any pain @ this time. IV access @ the [facility] with dsg. changed today and next dsg. changed will be next Sunday next week. Pt. with F/C draining yellow judie urine by gravity, last BM today 12/07/19. Generally skin is intact. Provided assistance with ADL's and keep pt. clean, dry, safe and blanket winder operator bed. Siderails up x 2-3, HOB up @ 30 degrees angle and bed locked in low position. Call-light within pt.'s reach.
--- NOTE | 2019-12-07 21:37 | NUR ---
Pt. given RT/Breathing treatments as ordered by the Doctor per RT Protocol. RT @ the bedside.
--- NOTE | 2019-12-07 22:21 | NUR ---
Meds. as scheduled given/administered. Pt. given explanation or health teaching about the use/benefits of the meds. as scheduled. Pt. verbalized understanding.
[2019-12-07] MEDS: ATORVASTATIN 20 MG TAB PO SCH (22:22)
--- NOTE | 2019-12-07 22:25 | NUR ---
Pt. Accucheck done with result of BS = 106. No coverage for Regular Human insulin needed. Pt. made aware of the blood sugar result.
--- NOTE | 2019-12-08 | NUR ---
Pt. made large BM, greenish brownish stool. Pt. given complete bedbath, washed and cleansed pt. and changed all bed linens, gowns, chux and pillow cases. Keep pt. clean, dry, safe and auto finance sales rep bed.
[2019-12-08] MEDS: PIPERACILLIN-TAZOB 3.375GM 100 ML IV SCH ×4 (00:47→18:15)
[2019-12-08] MEDS: ALBUTEROL SULF 2.5 MG/0.5ML(0.5%) NEB SOLN NEB SCH ×6 (01:55→22:46)
[2019-12-08] MEDS: IPRATROPIUM BROM 0.5 MG/2.5ML INH SOL NEB SCH ×6 (01:55→22:46)
--- NOTE | 2019-12-08 02:00 | NUR ---
Pt. is asleep. Turned/repositioned to the other sides with pillows supporting the back. Keep pt. safe and linotype mechanic bed.
--- NOTE | 2019-12-08 04:00 | NUR ---
Pt. sleeping well. SR @ the Tele # 63. Keep safe and metal flow coordinator bed.
[2019-12-08 05:00] VITALS: BP 111/64
--- NOTE | 2019-12-08 05:32 | NUR ---
Meds. due for 0600 am given. Pt. just awakened. Am labs. drawn from the [facility] Pic[facility]. Flushed the [facility] Piccline by NS and keep it patent and intact.
[2019-12-08] MEDS: FUROSEMIDE 100 MG/10ML VIAL IV SCH ×2 (05:33→18:15)
[2019-12-08 05:51] LABS: Basophils # (auto) 0.1 10 ^3/uL (0-0.2); Eosinophils # (auto) 0.3 10 ^3/uL (0-0.8); Eosinophils % (auto) 3.1 % (0.0-7.0); Hematocrit 40.1 % (41.0-53.0); Hemoglobin 13.7 g/dL (13.5-17.5); Lymphocytes # (auto) 1.4 10 ^3/uL (0.4-5.4); Lymphocytes % (auto) 13.6 % (10.0-50.0); Mean Corpuscular Hemoglobin 29.4 pg (28.0-32.0); Mean Corpuscular Hgb Conc. 34.2 g/dL (32.0-36.0); Monocytes # (auto) 1.1 10 ^3/uL (0-1.3); Monocytes % (auto) 10.6 % (0.0-12.0); Neutrophils # (auto) 7.6 10 ^3/uL (1.6-8.6); Neutrophils % (auto) 71.7 % (37.0-80.0); Platelet Count (auto) 309 10^3/uL (140-450); Red Blood Cells 4.66 10^6/uL (4.5-5.90); Red Cell Distribution Width 14.1 % (11.8-14.3); White Blood Cell 10.6 10^3/uL (4.4-10.8)
[2019-12-08 06:11] LABS: Calcium 8.4 mg/dL (8.5-10.1); Potassium 3.3 mmol/L (3.5-5.1)
[2019-12-08 06:16] LABS: BUN/Creatinine Ratio 27.4
[2019-12-08] MEDS: ACCU-CHEK COMFORT CURVE STRIP VI SCH ×5 (06:21→22:00)
[2019-12-08] MEDS: InsuLIN REG 1unit/0.01ml Soln (100units/ml) SC SCH ×4 (06:21→22:00)
--- NOTE | 2019-12-08 06:21 | NUR ---
Accucheck taken and result of BS = 110 , No coverage for Regular Human Insulin needed - see/refer to s/s of Emar.
--- NOTE | 2019-12-08 06:22 | NUR ---
Lab. Personnel called and notified DIOR Zaidi that Trop. done this early AM today result is 4.6 which is trending down from 6.4 yesterday.
[2019-12-08 09:00] VITALS: BP 126/72
--- NOTE | 2019-12-08 09:00 | NUR ---
SAW DR KINGSLEY AT NURSING STATION, SHE REPORTS PATIENT IS GOING TO [facility] THIS MORNING FOR A STENT TO THE RCA. NO ORDERS PLACED YET, PT ATE BREAKFAST. NOTIFIED PT OF PROCEDURE TODAY AND TOLD HIM HE IS NOW NPO, PT VERBALIZED UNDERSTANDING. CALLED [facility], THEY REPORT PT IS NOT ON SCHEDULE YET, NOTIFIED THEM PT IS TO HAVE LEFT HEART CATH TODAY AND HAS ATE BREAKFAST.
[2019-12-08] MEDS ORDERED: PROMETHAZINE HCL 25 MG/ML 1ML IV ONE (09:15)
--- NOTE | 2019-12-08 09:33 | NUR ---
PT REPORTS HE DOES NOT WANT TO SIGN CONSENTS FOR [facility] AT THIS TIME, HE REPORTS HE WANTS TO SPEAK WITH THE DOCTOR AND KNOW WHY HE HAS TO HAVE PROCEDURE AGAIN. EDUCATED PATIENT HE MAY HAVE ANOTHER BLOCKAGE AND MAY NEED ANOTHER STENT OR HIS HEART MAY NOT GET ENOUGH BLOOD AND OXYGEN. PT REPORTS HE WANTS TO WAIT. CONSENT PRINTED AND PLACED IN CHART.
[2019-12-08] MEDS: TICAGRELOR 90 MG TAB PO SCH ×2 (10:00→21:54)
[2019-12-08] MEDS: ASPirin 81 mg TAB PO SCH (10:00)
[2019-12-08] MEDS: CARVEDILOL 3.125 MG TAB PO SCH ×2 (10:33→18:16)
[2019-12-08] MEDS: Glucerna Carbsteady SHAKE Vanilla 8oz PO SCH ×3 (10:33→18:17)
--- NOTE | 2019-12-08 10:54 | NUR ---
DR MORENO CAME AND SPOKE WITH PATIENT. REPORTS PT HAS AGREED TO PROCEDURE. CONSENTS SIGNED, PT TAKEN TO JEWEL BEARING POLISHER VIA BED AND STAFF, NO DISTRESS NOTED.
[2019-12-08] MEDS ORDERED: IOHEXOL 350 MG/ML 100ML IJ ONE (11:12)
[2019-12-08] MEDS ORDERED: LIDOCAINE 2%HCL (LOCAL ANESTH.) INJ 20ML MDV ONE (11:12)
[2019-12-08] MEDS ORDERED: ANGIOMAX 250 MG VIAL IV ONE (11:24)
[2019-12-08] MEDS ORDERED: VERAPAMIL 2.5MG/ML INJ 2ML VIAL IV ONE (11:24)
[2019-12-08] MEDS ORDERED: HEPARIN SODIUM (PORCINE) 5000 UNITS/ML 1ML VIAL ONE (11:24)
[2019-12-08] MEDS ORDERED: fentaNYL CITRATE 100 MCG/2 ML VL ONE (11:24)
[2019-12-08] MEDS ORDERED: MIDAZOLAM HCL 1MG/1ML-2 ML VIAL ONE (11:25)
[2019-12-08] MEDS ORDERED: SODIUM CHL 0.9% 50 ML ONE (11:25)
[2019-12-08] MEDS: SODIUM CHLOR 0.9% PF (SALINE LOCK) 10ML VIAL/SYR IV SCH ×2 (11:43→21:52)
[2019-12-08] MEDS ORDERED: ASPirin 81 mg TAB ONE (12:03)
[2019-12-08] MEDS ORDERED: TICAGRELOR 90 MG TAB ONE (12:04)
[2019-12-08 13:00] VITALS: BP 114/66
--- NOTE | 2019-12-08 13:00 | NUR ---
PT RETURNNED TO FLOOR FROM EXCEL ANALYST. EXCEL ANALYST REPORTS PT HAD 3 STENTS PLACED TO THE RCA. INCISION ON RIGHT RADIUS WITH VASC BAND APPLIED. NO BLOOD NOTED AT SITE. EXCEL ANALYST NURSE REPORTS TO START DEFLATING AT 1325. PT REPORTS NO DISTRESS AT THIS TIME. VITALS:98.5, 114/66, HR 71, 02 94%, RR 18. PT REPORTS NO PAIN AT THIS TIME, WILL CONTINUE TO MONITOR. PAGED DR ADAMS PER REQUEST TO NOTIFY HER PT RETURNED.
--- NOTE | 2019-12-08 13:30 | NUR ---
BEGAN DEFLATING VASC BAND PER SHOP TECHNICIAN INSTRUCTIONS, 2 MLS TAKEN, WILL CONTINUE TO MONITOR INCISION SITE.
[2019-12-08] MEDS: POTASSIUM EFFERVESENT TAB 25 MEQ PO SCH (13:33)
[2019-12-08] MEDS: PANTOPRAZOLE 40 MG/10 ML VIAL INJ IV SCH (13:33)
[2019-12-08] MEDS: LISINOPRIL 5 MG TAB PO SCH (13:34)
--- NOTE | 2019-12-08 14:35 | NUR ---
FINISHED DEFLATING VASC BAND, BAND REMOVED, PRESSURE DRESSING APPLIED, NO BLOOD NOTED AT SITE, WILL CONTINUE TO MONITOR.
--- NOTE | 2019-12-08 15:02 | NUR ---
DR ADAMS SAW PATIENT AND DISCUSSED POC. REPORTS TO CALL PHYSICAL THERAPY TO GET PATIENT WALKING. CALLED PT, THEY REPORT THEY WILL SEE PATIENT TOMORROW. THEY REPORT THEY DO NOT WANT PATIENT TO STRAIN AFTER PROCEDURE TODAY. Addendum: 12/08/19 at [address] RN DR ADAMS NOTIFIED OF BISWAS COLORED URINE, REPORTS TO MONITOR. ALSO NOTIFIED TROPS ARE 4,600, MD AWARE, NO NEW ORDERS.
[2019-12-08 17:00] VITALS: BP 110/62
--- NOTE | 2019-12-08 19:00 | NUR ---
Received report from the Day Shift DIOR White Pt. in bed resting. Addendum: 12/08/19 at 1949 by ZAHIRA CARMONA RN RN Wrong chart
--- NOTE | 2019-12-08 19:10 | NUR ---
Received report from the Day Shift DIOR Hawkins. Pt. in bed resting.
--- NOTE | 2019-12-08 19:34 | NUR ---
Pt. SR @ 79 @ [facility] # 63. Pt. denies chest pain or denies chest discomfort and denies any pain from the body.
--- NOTE | 2019-12-08 20:00 | NUR ---
Assessment done and completed. Pt. resting and provided bedside nsg. care and assisted with ADL's. Pt. washed and cleansed by sponge and wipes after making a mod. loose stool x1 tonight. Bed linens including chux and pillow cases changed by the HEAVY LIFT RIGGER. Keep pt. clean, dry, safe and train crew member bed. Siderails up x 2 @ the head of the bed, bed locked in a low position and call-light @ the bedside.
[2019-12-08] MEDS: ATORVASTATIN 20 MG TAB PO SCH (21:54)
--- NOTE | 2019-12-08 21:54 | NUR ---
Meds. as scheduled given. Pt. made aware of the use and benefits of the meds. given. Pt. verbalized understanding. Able to swallow pills and water without difficulty.
--- NOTE | 2019-12-08 21:58 | NUR ---
Pt. accucheck taken with results of BS = 110 , No coverage for Regular Human Insulin needed.
[2019-12-08 22:00] VITALS: BP 122/67
--- NOTE | 2019-12-08 22:46 | NUR ---
Pt. received/given RT or Breathing treatments per RT Protocol as ordered by the Doctor. RT @ the bedside.
--- NOTE | 2019-12-08 23:30 | NUR ---
Pt. is resting and turned/repositioned as needed for comfort. Pt. given mask as pt. requested.
--- NOTE | 2019-12-09 00:08 | NUR ---
Hospitalist paged regarding patient reporting a dark, black stool during daytime. Awaiting callback at this time. Addendum: 12/10/19 at 0220 by Karina Villafana RN Correct date is 12/10/19 and correct time is 7
[2019-12-09] MEDS: PIPERACILLIN-TAZOB 3.375GM 100 ML IV SCH ×3 (00:19→12:03)
--- NOTE | 2019-12-09 00:19 | NUR ---
Zosyn - Piperacillin 3.375 GM IV antibiotic given this time. Pt. aware of the IV antibiotics as scheduled @ [place].
[2019-12-09] MEDS: ALBUTEROL SULF 2.5 MG/0.5ML(0.5%) NEB SOLN NEB SCH ×7 (02:05→23:55)
[2019-12-09] MEDS: IPRATROPIUM BROM 0.5 MG/2.5ML INH SOL NEB SCH ×7 (02:05→23:55)
--- NOTE | 2019-12-09 04:00 | NUR ---
Pt. resting and sleeping.
[2019-12-09 05:05] VITALS: BP 98/54
[2019-12-09] MEDS: FUROSEMIDE 100 MG/10ML VIAL IV SCH (05:35)
[2019-12-09] MEDS: ACCU-CHEK COMFORT CURVE STRIP VI SCH ×4 (05:40→21:30)
--- NOTE | 2019-12-09 05:40 | NUR ---
Accucheck taken with result of BS = 97 , No coverage for Regular Human Insulin needed.
[2019-12-09] MEDS: InsuLIN REG 1unit/0.01ml Soln (100units/ml) SC SCH ×4 (06:05→21:31)
[2019-12-09 06:58] LABS: BUN/Creatinine Ratio 25.8; Calcium 8.1 mg/dL (8.5-10.1)
--- NOTE | 2019-12-09 07:30 | NUR ---
Opening shift note Patient found in bed sleeping, no s/s of distress, sob or pain noted. Patient easily arousable. POC communicated, patient verbalized understanding. Bed in low position, locked, call light within reach. Will continue care.
[2019-12-09 07:38] LABS: Potassium 2.8 mmol/L (3.5-5.1)
--- NOTE | 2019-12-09 07:47 | NUR ---
Critical lab Hospitalist paged regarding potassium level 2.8. Awaiting call back.
[2019-12-09] MEDS: Glucerna Carbsteady SHAKE Vanilla 8oz PO SCH ×3 (08:00→18:00)
--- NOTE | 2019-12-09 08:13 | NUR ---
Critical lab Hospitalist paged regarding potassium level 2.8. Awaiting call back.
--- NOTE | 2019-12-09 08:20 | NUR ---
paged back Dr. Connelly paged back, new orders to give 50 meq Potassium effervescent tablet PO ONCE.
[2019-12-09] MEDS ORDERED: POTASSIUM EFFERVESENT TAB 25 MEQ PO ONE (08:30)
[2019-12-09] MEDS: POTASSIUM EFFERVESENT TAB 25 MEQ PO SCH (08:53)
[2019-12-09] MEDS: TICAGRELOR 90 MG TAB PO SCH ×2 (08:53→21:30)
[2019-12-09] MEDS: ASPirin 81 mg TAB PO SCH (08:54)
[2019-12-09] MEDS: CARVEDILOL 3.125 MG TAB PO SCH ×2 (08:54→18:12)
[2019-12-09] MEDS: SODIUM CHLOR 0.9% PF (SALINE LOCK) 10ML VIAL/SYR IV SCH ×2 (08:56→21:29)
[2019-12-09] MEDS: PANTOPRAZOLE 40 MG/10 ML VIAL INJ IV SCH (08:56)
[2019-12-09] MEDS: LISINOPRIL 5 MG TAB PO SCH (08:56)
[2019-12-09 09:00] VITALS: BP 103/65
[2019-12-09 13:00] VITALS: BP 106/86
--- NOTE | 2019-12-09 16:56 | NUR ---
Respiratory note: PATIENT ORDERED ROOM AIR ABG BY DR. ADAMS. PATIENT WAS TAKEN OFF ROOM AIR AND LEFT FOR GREATER THAN 30MIN TIME WITH SPO2 MAINTAINING AT 96%. ABG NOT INDICATED PATIENT WILL NOT QUALIFY FOR HOME O2. DIOR HWANG MADE AWARE OF NON DRAW OF ABG.
[2019-12-09 17:00] VITALS: BP 100/69
[2019-12-09] MEDS: FUROSEMIDE 40 MG TAB PO SCH (18:12)
[2019-12-09 20:15] VITALS: BP 116/66
--- NOTE | 2019-12-09 20:15 | NUR ---
Opening Shift Note Assumed care of patient, awake and alert. No S/S of distress/SOB or pain. Patient is on room air. Respirations even and unlabored. Instructed on POC and to call for assist PRN, will continue to monitor for changes Q1hr and PRN.
--- NOTE | 2019-12-09 20:48 | NUR ---
Received phone call from family member Amy. Correct password provided. Update provided.
[2019-12-09] MEDS: ATORVASTATIN 20 MG TAB PO SCH (21:30)
[2019-12-09] MEDS: POTASSIUM CHL 20 Meq TABLET PO SCH (21:30)
[2019-12-09 22:00] VITALS: BP 116/66
--- NOTE | 2019-12-09 22:22 | NUR ---
PT STATES HE DOES NOT WANT TO BE WOKEN UP FOR HIS 0200 SCHEDULED TX. HE IS AWARE TO CALL IF HE CHANGES HIS MIND OR FEELS SOB.
--- NOTE | 2019-12-10 00:08 | NUR ---
Hospitalist paged regarding patient reporting a dark, black stool during daytime. Awaiting callback at this time.
--- NOTE | 2019-12-10 00:19 | NUR ---
Received callback from KAMRON Ricketts, regarding patient reporting a dark, black stool during daytime. New order received: stool occult lab.
--- NOTE | 2019-12-10 00:54 | NUR ---
Stool sent to lab for stool occult test.
[2019-12-10 05:00] VITALS: BP 117/68
[2019-12-10] MEDS: FUROSEMIDE 40 MG TAB PO SCH (06:24)
[2019-12-10 06:26] LABS: Basophils # (auto) 0.1 10 ^3/uL (0-0.2); Eosinophils # (auto) 0.3 10 ^3/uL (0-0.8); Hematocrit 40.5 % (41.0-53.0); Hemoglobin 13.8 g/dL (13.5-17.5); Lymphocytes # (auto) 2.2 10 ^3/uL (0.4-5.4); Lymphocytes % (auto) 20.6 % (10.0-50.0); Mean Corpuscular Hgb Conc. 34.1 g/dL (32.0-36.0); Monocytes % (auto) 9.7 % (0.0-12.0); Neutrophils % (auto) 65.7 % (37.0-80.0); Platelet Count (auto) 368 10^3/uL (140-450); Red Blood Cells 4.76 10^6/uL (4.5-5.90); Red Cell Distribution Width 13.7 % (11.8-14.3); White Blood Cell 10.7 10^3/uL (4.4-10.8)
[2019-12-10] MEDS: ALBUTEROL SULF 2.5 MG/0.5ML(0.5%) NEB SOLN NEB SCH ×3 (06:29→14:17)
[2019-12-10] MEDS: IPRATROPIUM BROM 0.5 MG/2.5ML INH SOL NEB SCH ×3 (06:29→14:17)
[2019-12-10] MEDS: InsuLIN REG 1unit/0.01ml Soln (100units/ml) SC SCH ×2 (06:33→11:30)
[2019-12-10] MEDS: ACCU-CHEK COMFORT CURVE STRIP VI SCH ×2 (06:33→11:47)
[2019-12-10 06:47] LABS: Calcium 8.3 mg/dL (8.5-10.1); Magnesium 2.9 mg/dL (1.6-2.6)
[2019-12-10 06:49] LABS: BUN/Creatinine Ratio 27.3
--- NOTE | 2019-12-10 06:55 | NUR ---
Douglass care provided using Douglass care wipes.
--- NOTE | 2019-12-10 07:01 | NUR ---
Critical lab Mary from lab reports critical potassium level of 2.8. Hospitalist paged. Awaiting callback at this time.
[2019-12-10 07:02] LABS: Potassium 2.8 mmol/L (3.5-5.1)
--- NOTE | 2019-12-10 07:06 | NUR ---
Received callback from KAMRON Ricketts, regarding critical potassium level of 2.8. New order received: 20 meq potassium tablet PO once now. Will endorse to day shift RN.
--- NOTE | 2019-12-10 07:08 | NUR ---
CLOSING NOTE Patient is on room air. Respirations even and unlabored. No S/S of distress/SOB or pain. Endorsed to day shift RN regarding critical potassium level.
[2019-12-10] MEDS ORDERED: POTASSIUM CHL 20 Meq TABLET PO ONE ×2 (07:15→11:45)
--- NOTE | 2019-12-10 08:00 | NUR ---
Opening Shift Note Assumed care of patient, awake, alert and oriented. No S/S of distress/SOB or pain. Instructed on POC and to call for assist PRN. Bed locked, in lowest position, call light within reach. Will continue to monitor for changes Q1hr and PRN.
[2019-12-10] MEDS: Glucerna Carbsteady SHAKE Vanilla 8oz PO SCH ×2 (08:04→12:01)
[2019-12-10] MEDS: CARVEDILOL 3.125 MG TAB PO SCH (08:33)
[2019-12-10 09:00] VITALS: BP 119/69
[2019-12-10] MEDS ORDERED: PANTOPRAZOLE 40 MG TAB PO SCH (10:00)
[2019-12-10] MEDS: TICAGRELOR 90 MG TAB PO SCH (11:39)
[2019-12-10] MEDS: POTASSIUM CHL 20 Meq TABLET PO SCH (11:39)
[2019-12-10] MEDS: ASPirin 81 mg TAB PO SCH (11:39)
[2019-12-10] MEDS: SODIUM CHLOR 0.9% PF (SALINE LOCK) 10ML VIAL/SYR IV SCH (11:43)
[2019-12-10] MEDS: LISINOPRIL 5 MG TAB PO SCH (11:45)
[2019-12-10] MEDS ORDERED: FURO1TAB31 PO (11:51)
[2019-12-10] MEDS ORDERED: POTA-220 PO (11:51)
[2019-12-10] MEDS ORDERED: CAR3125T PO (11:51)
[2019-12-10] MEDS ORDERED: LISI-275 PO (11:51)
[2019-12-10] MEDS ORDERED: ASPI-378 PO (11:51)
[2019-12-10] MEDS ORDERED: ATOR20TA50 PO (11:51)
[2019-12-10] MEDS ORDERED: PANT40T PO (11:51)
[2019-12-10] MEDS ORDERED: TICA90TA PO (11:51)
--- NOTE | 2019-12-10 12:00 | NUR ---
Grant catheter dc'd Order to discontinue grant catheter. Grant dc'd with clean technique following deflation of balloon. Patient tolerated well with no complaints of pain. Continue care.
[2019-12-10 13:00] VITALS: BP 98/62
--- NOTE | 2019-12-10 14:50 | NUR ---
room air pulse ox done with ambulation sats at 96 while sitting, increased to 97 and 98 with ambulation
[2019-12-10 15:37] VITALS: BP 98/62
--- NOTE | 2019-12-10 15:46 | NUR ---
HOME HEALTH Patient verbalized he wants to go home without Home Health being set up and wants to be contacted via phone with Home Health information. Notified Carolynn Simeon, Contract Engineer, verbalized understanding.
[2019-12-10 16:50] VITALS: BP 116/68
--- NOTE | 2019-12-10 17:14 | NUR ---
Discharge instructions given as ordered. Encourage to follow up with PMD as instructed. All questions and concerns addressed. Patient verbalized understanding. Medication reconciliation form completed and copy given to patient. IV removed with catheter intact, pressure dressing applied. Telemetry unit returned to ICU. Patient awaiting transportation.
--- NOTE | 2019-12-10 17:15 | NUR ---
PULMONOLOGY Dr Aguilar at bedside for Pulmonology follow up. Patient updated on plan of care, verbalized understanding.
[2019-12-10 17:35] VITALS: BP 116/68
== END 2019-12-10 17:30 | disposition home or self-care (01) | DRG 853 ==
LOC: ER 10:00 → EDBD 10:00 → ICU WEST 10:01 → TELE-WESTW 12-07 15:22
PROVIDERS: ADMIT Internal Medicine; ATTEND Internal Medicine
PROC: 027034Z Dilation of Coronary Artery, One Artery with Drug-eluting Intraluminal Device, Percutaneous Approach (ICD-10-PCS; principal; 2019-11-30)
PROC: 4A023N7 Measurement of Cardiac Sampling and Pressure, Left Heart, Percutaneous Approach (ICD-10-PCS; 2019-11-30)
PROC: B2111ZZ Fluoroscopy of Multiple Coronary Arteries using Low Osmolar Contrast (ICD-10-PCS; 2019-11-30)
PROC: B2151ZZ Fluoroscopy of Left Heart using Low Osmolar Contrast (ICD-10-PCS; 2019-11-30)
PROC: 5A1955Z Respiratory Ventilation, Greater than 96 Consecutive Hours (ICD-10-PCS; 2019-12-02)
PROC: 0BH17EZ Insertion of Endotracheal Airway into Trachea, Via Natural or Artificial Opening (ICD-10-PCS; 2019-12-02)
PROC: 02HV33Z Insertion of Infusion Device into Superior Vena Cava, Percutaneous Approach (ICD-10-PCS; 2019-12-03)
PROC: 027136Z Dilation of Coronary Artery, Two Arteries with Three Drug-eluting Intraluminal Devices, Percutaneous Approach (ICD-10-PCS; 2019-12-08)
PROC: B2111ZZ Fluoroscopy of Multiple Coronary Arteries using Low Osmolar Contrast (ICD-10-PCS; 2019-12-08)
DX: A41.9 Sepsis, unspecified organism (principal); I21.19 ST elevation (STEMI) myocardial infarction involving other coronary artery of inferior wall; J18.9 Pneumonia, unspecified organism; J96.01 Acute respiratory failure with hypoxia; R57.0 Cardiogenic shock; N17.0 Acute kidney failure with tubular necrosis; I50.43 Acute on chronic combined systolic (congestive) and diastolic (congestive) heart failure; J98.11 Atelectasis; I13.0 Hypertensive heart and chronic kidney disease with heart failure and stage 1 through stage 4 chronic kidney disease, or unspecified chronic kidney disease; E87.1 Hypo-osmolality and hyponatremia; E44.0 Moderate protein-calorie malnutrition; Z99.11 Dependence on respirator [ventilator] status; M47.812 Spondylosis without myelopathy or radiculopathy, cervical region; E66.01 Morbid (severe) obesity due to excess calories; E78.5 Hyperlipidemia, unspecified; I25.10 Atherosclerotic heart disease of native coronary artery without angina pectoris; N40.0 Benign prostatic hyperplasia without lower urinary tract symptoms; R31.9 Hematuria, unspecified; N18.9 Chronic kidney disease, unspecified; E11.22 Type 2 diabetes mellitus with diabetic chronic kidney disease; R00.1 Bradycardia, unspecified; E87.6 Hypokalemia; Z68.37 Body mass index [BMI] 37.0-37.9, adult; I25.2 Old myocardial infarction; Z79.02 Long term (current) use of antithrombotics/antiplatelets; Z82.49 Family history of ischemic heart disease and other diseases of the circulatory system; Z87.891 Personal history of nicotine dependence; Z03.818 Encounter for observation for suspected exposure to other biological agents ruled out
CPT/HCPCS: 36415; 36569; 36600; 70450; 71045; 71250; 72125; 80048; 80053; 80061; 81001; 82270; 82805; 82962; 83036; 83605; 83735; 83880; 84132; 84443; 84484; 85014; 85018; 85025; 85610; 85730; 87040; 87070; 87081; 87086; 87205; 87804; 92928; 92929; 93005; 93306; 93454; 93458; 94002; 94003; 94640; 96361; 96374; 96375; 97110; 97116; 97163; 97530; 99152; 99153; 99291; C1874; C1887; C9113; G0378; J0330; J0696; J1815; J1956; J2250; J2405; J2543; J2704; J3480; J3490

== ENCOUNTER 2019-12-16 06:23 | Inpatient (IN) | payer OTHER ==
[~2019-12-16] VITALS: Ht 170.2 cm; Wt 106.7 kg
[~2019-12-16 06:23] MED LIST changes: +ASPI-378 PO; +ATOR20TA50 PO; +CAR3125T PO; +CHOL20007 PO; -CLOP75TA28 PO; +FURO1TAB31 PO; +LISI-275 PO; +NITR0.4S29 SL; +PANT40T PO; +POTA-220 PO; +TICA90TA PO
[2019-12-16] MEDS ORDERED: HEPARIN SODIUM (PORCINE) 5000 UNITS/ML 1ML VIAL IV ONE (06:45)
[2019-12-16] MEDS ORDERED: ASPirin 81 mg TAB PO ONE (06:45)
[2019-12-16 06:49] LABS: Basophils # (auto) 0.1 10 ^3/uL (0-0.2); Basophils % (auto) 1.2 % (0.0-2.0); Eosinophils # (auto) 0.1 10 ^3/uL (0-0.8); Eosinophils % (auto) 1.6 % (0.0-7.0); Hematocrit 44.2 % (41.0-53.0); Hemoglobin 14.8 g/dL (13.5-17.5); Lymphocytes # (auto) 2.8 10 ^3/uL (0.4-5.4); Lymphocytes % (auto) 38.8 % (10.0-50.0); Mean Corpuscular Hemoglobin 28.9 pg (28.0-32.0); Mean Corpuscular Hgb Conc. 33.4 g/dL (32.0-36.0); Mean Corpuscular Volume 86.6 fL (80.0-100.0); Monocytes # (auto) 0.7 10 ^3/uL (0-1.3); Monocytes % (auto) 9.7 % (0.0-12.0); Neutrophils # (auto) 3.5 10 ^3/uL (1.6-8.6); Neutrophils % (auto) 48.7 % (37.0-80.0); Platelet Count (auto) 425 10^3/uL (140-450); Red Cell Distribution Width 14.5 % (11.8-14.3); White Blood Cell 7.2 10^3/uL (4.4-10.8)
[2019-12-16 07:04] LABS: INR 1.09 (0.9-1.15); Partial Thromboplastin Time 28.6 sec (23.64-32.05)
[2019-12-16] MEDS ORDERED: ONDANSETRON HCL 4 MG/2 ML VIAL ONE (07:10)
[2019-12-16] MEDS ORDERED: MORPHINE SULFATE 4 MG/ML SYR/VIAL ONE (07:10)
[2019-12-16 07:13] LABS: Albumin 3.3 g/dL (3.4-5.0); Calcium 8.8 mg/dL (8.5-10.1); Magnesium 2.7 mg/dL (1.6-2.6); Potassium 3.7 mmol/L (3.5-5.1)
[2019-12-16] MEDS ORDERED: IOHEXOL 350 MG/ML 100ML IJ ONE (07:13)
[2019-12-16] MEDS ORDERED: ANGIOMAX 250 MG VIAL IV ONE (07:13)
[2019-12-16] MEDS ORDERED: MIDAZOLAM HCL 1MG/1ML-2 ML VIAL ONE (07:13)
[2019-12-16] MEDS ORDERED: SODIUM CHL 0.9% 50 ML ONE (07:13)
[2019-12-16] MEDS ORDERED: fentaNYL CITRATE 100 MCG/2 ML VL ONE (07:13)
[2019-12-16] MEDS ORDERED: LIDOCAINE 2%HCL (LOCAL ANESTH.) INJ 20ML MDV ONE (07:13)
[2019-12-16] MEDS ORDERED: ONDANSETRON HCL 4 MG/2 ML VIAL IV ONE (07:15)
[2019-12-16] MEDS ORDERED: MORPHINE SULFATE 4 MG/ML SYR/VIAL IV ONE (07:15)
[2019-12-16 07:18] LABS: BUN/Creatinine Ratio 8.4; Bilirubin, Total 0.8 mg/dL (0.2-1.0); Total Protein 8.2 g/dL (6.4-8.2)
[2019-12-16] MEDS ORDERED: ATROPINE SULF 1 MG/10ml SYR ONE (07:49)
[2019-12-16] MEDS ORDERED: EPINEPHrine HCL 1 MG/10 ML SYRG ONE (07:49)
[2019-12-16] MEDS ORDERED: EPTIFIBATIDE INJ (2MG/ML) 10ML VIAL IV ONE (07:53)
[2019-12-16] MEDS ORDERED: TICAGRELOR 90 MG TAB ONE (08:16)
[2019-12-16] MEDS ORDERED: cefTRIAXone 1GM/50ML D5W 50 ML IV ONE (08:29)
[2019-12-16] MEDS ORDERED: AZITHROMYCIN 500MG/ 250ML 250 ML IV ONE (08:45)
[2019-12-16] MEDS ORDERED: MORPHINE SULF INJ 2 MG/ML SYRINGE 1ML IV PRN (09:30)
[2019-12-16] MEDS ORDERED: ONDANSETRON HCL 4 MG/2 ML VIAL IV PRN (09:30)
[2019-12-16] MEDS ORDERED: ACETAMINOPHEN 500 MG TAB PO PRN (09:30)
[2019-12-16] MEDS ORDERED: HYDROcodone-ACET 5/325MG TAB PO PRN (09:30)
[2019-12-16] MEDS ORDERED: NITROGLYCERIN 0.4 MG SL TAB SL PRN (09:30)
--- NOTE | 2019-12-16 11:00 | NUR ---
Patient Arrived Patient arrived to unit from Registered Nurse Teacher. No signs of distress at this time. Safety precautions in place. Will continue to monitor.
--- NOTE | 2019-12-16 11:10 | NUR ---
Assessment Patient currently sitting up in bed, no signs of distress at this time. Patient is AOx4, skin intact-patient is s/p angiogram, dressing is clean dry and intact, site is soft with no signs of hematoma at this time. Patient states he currently has no pain. Patient oriented to room, safety precautions are in place. Will continue to monitor.
--- NOTE | 2019-12-16 12:01 | NUR ---
MD HAIR CALLED AND SPOKE TO DR. Terrance HERNADEZ. UPDATED ON PT STATUS BEFORE TRANSFER TO [facility]. AWARE OF TROP 37.9 BUT NO C/O CHEST PAIN AT THE TIME. NEW ORDERS RECEIVED. SPOKE WITH DIOR JONES CARING FOR PT AND UPDATED ON ORDERS.
[2019-12-16 12:30] VITALS: BP 122/73
[2019-12-16 12:48] VITALS: BP 122/73
[2019-12-16] MEDS ORDERED: INFLUENZA QUAD 2019-2020 0.5ml SYRG IM ONE (13:15)
[2019-12-16] MEDS: SOD CHL 0.45% 1,000 ML IV SCH (14:07)
--- NOTE | 2019-12-16 14:16 | NUR ---
Lab Call from Judith, reporting Troponin critical value 67.7. Will notify
--- NOTE | 2019-12-16 14:18 | NUR ---
Notified Paged Dr. Lomeli, left message regarding troponin level of 67.7.
--- NOTE | 2019-12-16 14:50 | NUR ---
Patient Rounds Patient currently laying on left side with eyes closed, no signs of distress at this time. Respirations are even and unlabored, will continue to monitor.
[2019-12-16 17:00] VITALS: BP 107/57
--- NOTE | 2019-12-16 17:25 | NUR ---
[facility] sent MRSA swab sent to lab.
[2019-12-16] MEDS: CARVEDILOL 3.125 MG TAB PO SCH (17:28)
--- NOTE | 2019-12-16 19:25 | NUR ---
opening note pt resting in semi fowlers position with eyes closed. respirations are even and nonlabored on 2lnc. no s/s of pain or discomfort. bed in low locked position, call light within reach.
[2019-12-16 22:00] VITALS: BP 109/72
--- NOTE | 2019-12-16 22:20 | NUR ---
rounds pt A&Ox4. pt states that he "feels better now", and pt denies pain or discomfort. will continue to monitor
[2019-12-16] MEDS: ATORVASTATIN 20 MG TAB PO SCH (23:23)
[2019-12-16] MEDS: TICAGRELOR 90 MG TAB PO SCH (23:23)
[2019-12-17 05:00] VITALS: BP 127/70
[2019-12-17 06:07] LABS: Basophils # (auto) 0.1 10 ^3/uL (0-0.2); Basophils % (auto) 0.7 % (0.0-2.0); Eosinophils # (auto) 0.1 10 ^3/uL (0-0.8); Eosinophils % (auto) 0.9 % (0.0-7.0); Hematocrit 38.8 % (41.0-53.0); Hemoglobin 12.9 g/dL (13.5-17.5); Lymphocytes # (auto) 2.1 10 ^3/uL (0.4-5.4); Lymphocytes % (auto) 25.5 % (10.0-50.0); Mean Corpuscular Hemoglobin 28.9 pg (28.0-32.0); Mean Corpuscular Hgb Conc. 33.3 g/dL (32.0-36.0); Mean Corpuscular Volume 86.8 fL (80.0-100.0); Monocytes # (auto) 0.8 10 ^3/uL (0-1.3); Monocytes % (auto) 9.4 % (0.0-12.0); Neutrophils # (auto) 5.3 10 ^3/uL (1.6-8.6); Neutrophils % (auto) 63.5 % (37.0-80.0); Nucleated Red Blood Cells % 0.1 %; Platelet Count (auto) 390 10^3/uL (140-450); Red Blood Cells 4.47 10^6/uL (4.5-5.90); Red Cell Distribution Width 14.1 % (11.8-14.3); White Blood Cell 8.4 10^3/uL (4.4-10.8)
[2019-12-17 06:30] LABS: Calcium 8.2 mg/dL (8.5-10.1); Potassium 3.7 mmol/L (3.5-5.1)
[2019-12-17 06:33] LABS: BUN/Creatinine Ratio 7.7
--- NOTE | 2019-12-17 06:54 | NUR ---
closing note pt resting in lft lateral position. respirations even and nonlabored. no s/s of pain or distress. bed in low locked position, call light within reach.
--- NOTE | 2019-12-17 07:30 | NUR ---
Opening Shift Note Assuming care of patient at this time. Patient is awake and alert. Patient denies pain. Patient shows no signs or symptoms of distress or shortness of breath. Bed is locked and lowered with side rails up x2. Instructed patient on the plan of care for today and to call for assistance as needed. Call light within reach. Will continue to round hourly and as needed.
[2019-12-17] MEDS: CARVEDILOL 3.125 MG TAB PO SCH ×2 (08:00→18:00)
[2019-12-17 09:00] VITALS: BP 109/57
[2019-12-17] MEDS: CHOLECALCIFEROL (VITD3) 1,000IU=25mCg TAB PO SCH (09:57)
[2019-12-17] MEDS: POTASSIUM CHL 20 Meq TABLET PO SCH (09:57)
[2019-12-17] MEDS: ASPirin-EC 81 mg tab PO SCH (09:58)
[2019-12-17] MEDS: PANTOPRAZOLE 40 MG TAB PO SCH (09:58)
[2019-12-17] MEDS: FUROSEMIDE 40 MG TAB PO SCH (09:58)
[2019-12-17] MEDS ORDERED: PATIENTS OWN MEDICATION (Cholecalciferol (Vitamin D3) 2,000 UNIT) PO SCH (10:00)
[2019-12-17] MEDS: LISINOPRIL 5 MG TAB PO SCH (10:01)
[2019-12-17] MEDS: SOD CHL 0.45% 1,000 ML IV SCH (10:40)
--- NOTE | 2019-12-17 12:42 | NUR ---
I called [facility] [phone] and spoke with Janette to request authorization for home health and FWW. Per Janette, request needs to be faxed to [phone]-and they will make the arrangements for the home health and DME. I faxed requested order-I relayed this information to psychiatric social worker supervisor Mami letting her know that per [place], they will make the arrangements themselves.
[2019-12-17] MEDS: TICAGRELOR 90 MG TAB PO SCH ×2 (12:50→22:12)
[2019-12-17 12:57] VITALS: BP 92/52
[2019-12-17] MEDS ORDERED: AZITHROMYCIN 250 MG TAB PO ONE (14:00)
[2019-12-17] MEDS ORDERED: cefTRIAXone 1GM/50ML D5W 50 ML IV ONE (14:00)
[2019-12-17] MEDS ORDERED: ATOR40TA52 PO (16:45)
[2019-12-17] MEDS ORDERED: POTA-180 PO (16:50)
--- NOTE | 2019-12-17 17:00 | NUR ---
Cardiology Clearance Per Dr. Schrader, patient is clear for discharge tomorrow morning.
--- NOTE | 2019-12-17 19:15 | NUR ---
Closing Shift Note Patient resting in bed. No distress noted. Report given. Will endorse care to night worker RN.
--- NOTE | 2019-12-17 19:35 | NUR ---
OPENING NOTE pt A&Ox4. pt denies pain or discomfort. pt feels better, and anticipates being discharged tomorrow. respirations are even and non labored on 2Lnc. Bed in low locked position, call light within reach.
[2019-12-17] MEDS: ATORVASTATIN 20 MG TAB PO SCH (22:12)
[2019-12-17 22:21] VITALS: BP 101/57
--- NOTE | 2019-12-18 00:57 | NUR ---
Dr. Lomeli at bedside.
[2019-12-18 05:30] VITALS: BP 125/65
[2019-12-18 05:51] LABS: Basophils # (auto) 0.1 10 ^3/uL (0-0.2); Basophils % (auto) 1.3 % (0.0-2.0); Eosinophils # (auto) 0.1 10 ^3/uL (0-0.8); Eosinophils % (auto) 1.2 % (0.0-7.0); Hematocrit 39.3 % (41.0-53.0); Lymphocytes # (auto) 3.2 10 ^3/uL (0.4-5.4); Lymphocytes % (auto) 31.5 % (10.0-50.0); Mean Corpuscular Hemoglobin 28.6 pg (28.0-32.0); Mean Corpuscular Hgb Conc. 33.1 g/dL (32.0-36.0); Mean Corpuscular Volume 86.3 fL (80.0-100.0); Monocytes # (auto) 0.8 10 ^3/uL (0-1.3); Monocytes % (auto) 8.3 % (0.0-12.0); Neutrophils # (auto) 5.9 10 ^3/uL (1.6-8.6); Neutrophils % (auto) 57.7 % (37.0-80.0); Nucleated Red Blood Cells % 0.3 %; Platelet Count (auto) 383 10^3/uL (140-450); Red Blood Cells 4.55 10^6/uL (4.5-5.90); Red Cell Distribution Width 14.2 % (11.8-14.3); White Blood Cell 10.2 10^3/uL (4.4-10.8)
[2019-12-18 06:06] LABS: Magnesium 2.7 mg/dL (1.6-2.6); Potassium 4.2 mmol/L (3.5-5.1)
[2019-12-18 06:11] LABS: BUN/Creatinine Ratio 11.3
--- NOTE | 2019-12-18 06:20 | NUR ---
critical lab TROP 10.[address] HERNADEZ
--- NOTE | 2019-12-18 06:40 | NUR ---
notified DR. Lomeli of critical lab Troponin 10.4
[2019-12-18] MEDS: SOD CHL 0.45% 1,000 ML IV SCH (06:45)
--- NOTE | 2019-12-18 07:00 | NUR ---
closing note pt A&Ox4. pt is dangling at bedside. respirations even and nonlabored on 2Lnc. pt denies pain or discomfort. bed in low locked position, call light within reach. Endorsed care to day shift DIOR Moreno.
[2019-12-18] MEDS: CARVEDILOL 3.125 MG TAB PO SCH (08:00)
--- NOTE | 2019-12-18 08:48 | NUR ---
Assessment Patient is a 69-year-old male who is alert and oriented. Unable to speak to patient. Assessment was completed with patient An ). Prior to admission patient lived home with family. An informed patient does not have any medical equipment now. An informed patient functioned with assistance and helps with his ADLs. Per An patient will return home to his prior living arrangements post discharge and she will transport patient home. Advised An there is a Social Service order for Home Health physical therapy and walker with seat. Informed An treatment manager Shanita advised patient Medical Group: [facility] will assist with home health and DME. Informed An she has the right to participate in all discharge planning. An verbalized understanding and agrees to discharge plan. Addendum: 12/18/19 at 0849 by JOE FOREMAN Amended: Links added.
[2019-12-18 09:00] VITALS: BP 107/69
[2019-12-18] MEDS ORDERED: cefTRIAXone 1GM/50ML D5W 50 ML IV SCH (09:00)
[2019-12-18] MEDS ORDERED: AZITHROMYCIN 250 MG TAB PO SCH (10:00)
[2019-12-18] MEDS: LISINOPRIL 5 MG TAB PO SCH (10:00)
[2019-12-18] MEDS: PANTOPRAZOLE 40 MG TAB PO SCH (11:00)
[2019-12-18] MEDS: CHOLECALCIFEROL (VITD3) 1,000IU=25mCg TAB PO SCH (11:00)
[2019-12-18] MEDS: TICAGRELOR 90 MG TAB PO SCH (11:01)
[2019-12-18] MEDS: ASPirin-EC 81 mg tab PO SCH (11:01)
[2019-12-18] MEDS: POTASSIUM CHL 20 Meq TABLET PO SCH (11:01)
[2019-12-18] MEDS: FUROSEMIDE 40 MG TAB PO SCH (11:02)
--- NOTE | 2019-12-18 11:50 | NUR ---
1145 12/18/19 I called [facility] [phone] to ask about the arrangements for home health and walker (patient to discharge home today)-was left on hold for more than 10 minutes without being able to talk with a live person-will try again.
--- NOTE | 2019-12-18 12:58 | NUR ---
9810 12/18/19 I called [facility] [phone] extension [phone] and spoke with Clinical Medical Transcriptionist Sandra regarding home health and walker arrangements-per Sandra I need to fax her PT notes-faxed as requested to [phone]. Per Sandra the order has not been worked on yet-I reminded her that I had faxed it 24 hours ago and was told that they would take care of the arrangements and I never heard back. Per Sandra once she receives the PT notes she will give it to her behavioral medical director and will call me back regarding the arrangements. I asked Sandra if they will be authorizing patient's stay while they are making the arrangements, she stated "I don't know".
[2019-12-18 13:00] VITALS: BP 95/52
--- NOTE | 2019-12-18 16:22 | NUR ---
D/C Planning transition manager Shanita advised [facility] assign patient under [facility] Ph:) and [facility] for the DME. Per Kalie with [facility] Ph: ( [phone]) four wheel walker will be deliver to [facility] by 17:30. Informed DIOR Moreno. Addendum: 12/18/19 at 1627 by JOE FOREMAN Faxed clinical information to [facility] and patient will be seen within 24-48hrs upon d/c day.
[2019-12-18 17:00] VITALS: BP 103/70
[2019-12-18 17:04] VITALS: BP 103/70
--- NOTE | 2019-12-18 17:30 | NUR ---
Re: Walker at bedside Walker delivered, taken to patient and placed bedside at this time.
--- NOTE | 2019-12-18 17:51 | NUR ---
Discharge Discharge instructions given as ordered. Encourage to follow up with PMD as instructed. All questions and concerns addressed. Patient verbalized understanding. Medication reconciliation form completed and copy given to patient. IV removed with catheter intact, pressure dressing applied. Telemetry unit returned to ICU. Patient taken to vehicle via wheelchair with all personal belongings, and walker, accompanied by staff. No distress noted at time of departure.
== END 2019-12-18 18:00 | disposition home or self-care (01) | DRG 250 ==
LOC: ER 06:23 → CATH 06:58 → TELE-WESTW 11:32
PROVIDERS: ADMIT Internal Medicine; ATTEND Internal Medicine
PROC: 02713ZZ Dilation of Coronary Artery, Two Arteries, Percutaneous Approach (ICD-10-PCS; principal; 2019-12-16)
PROC: 02C13ZZ Extirpation of Matter from Coronary Artery, Two Arteries, Percutaneous Approach (ICD-10-PCS; 2019-12-16)
PROC: B241ZZ3 Ultrasonography of Multiple Coronary Arteries, Intravascular (ICD-10-PCS; 2019-12-16)
PROC: B2111ZZ Fluoroscopy of Multiple Coronary Arteries using Low Osmolar Contrast (ICD-10-PCS; 2019-12-16)
PROC: 3E073PZ Introduction of Platelet Inhibitor into Coronary Artery, Percutaneous Approach (ICD-10-PCS; 2019-12-16)
DX: I97.190 Other postprocedural cardiac functional disturbances following cardiac surgery (principal); J18.9 Pneumonia, unspecified organism; I50.33 Acute on chronic diastolic (congestive) heart failure; I22.1 Subsequent ST elevation (STEMI) myocardial infarction of inferior wall; E44.0 Moderate protein-calorie malnutrition; T82.867A Thrombosis due to cardiac prosthetic devices, implants and grafts, initial encounter; I11.0 Hypertensive heart disease with heart failure; E78.5 Hyperlipidemia, unspecified; E66.01 Morbid (severe) obesity due to excess calories; Z87.891 Personal history of nicotine dependence; Z79.899 Other long term (current) drug therapy; Z79.82 Long term (current) use of aspirin; Z83.3 Family history of diabetes mellitus; Z82.49 Family history of ischemic heart disease and other diseases of the circulatory system; Z68.36 Body mass index [BMI] 36.0-36.9, adult; I25.119 Atherosclerotic heart disease of native coronary artery with unspecified angina pectoris; Z98.61 Coronary angioplasty status
CPT/HCPCS: 36415; 71045; 80048; 80053; 83735; 83880; 84443; 84484; 85025; 85610; 85730; 86850; 86900; 86901; 87081; 92941; 92973; 92978; 92979; 93005; 93454; 97163; 99152; 99153; 99291; G0378; J0696; J2250; J2405